=== PATIENT | male | born 1935 | race Caucasian/White ===

== ENCOUNTER → 2017-02-02 | Outpatient (CLI) | payer OTHER ==
[~2017-02-02] MED LIST: TAMS0.4C38 PO
[2017-02-02 13:55] LABS: BASO % 0.3 %; BASO ABS # 0.02 K/uL (0-0.2); COMPLETE YES; EOS % 5.6 %; IG% 0.2 %; LYMPH % 28.1 %; LYMPH ABS # 1.71 K/uL (1.2-3.4); MEAN CELL VOLUME 94.8 fL (80-100); MEAN CORPUSCULAR HEMOGLOBIN 30.1 pg (25-34); MEAN CORPUSCULAR HGB CONC 31.7 g/dl (32-36); MEAN PLATELET VOLUME 12.2 fL (7.4-10.4); MONO % 10.2 %; NEUT % 55.6 %; PLATELET COUNT 149 K/uL (130-400); RED BLOOD COUNT 4.85 M/uL (4.7-6.1); WHITE BLOOD COUNT 6.08 K/uL (4.8-10.8)
[2017-02-02 14:33] LABS: ALT/SGPT 34 U/L (12-78); AST/SGOT 32 U/L (15-37); BLOOD UREA NITROGEN 18 mg/dl (7-18); BUN/CREATININE RATIO 16.5 (10-20); CALCIUM 8.6 mg/dl (8.5-10.1); CARBON DIOXIDE 28 mmol/L (21-32); CHLORIDE 106 mmol/L (98-107); CHOLESTEROL 172 mg/dl (0-200); GLUCOSE 101 mg/dl (70-99); POTASSIUM 3.9 mmol/L (3.5-5.1); SODIUM 139 mmol/L (136-145)
[2017-02-02 14:38] LABS: ALKALINE PHOSPHATASE 59 U/L (45-117); CHOLESTEROL/HDL RATIO 2.6; HDL CHOLESTEROL 67 mg/dl; LDL CHOLESTEROL CALCULATED 64 mg/dl; TRIGLYCERIDES 205 mg/dl (0-150); VERY LOW DENSITY LIPOPROT CALC 41 mg/dl
== END | disposition home or self-care (01) ==
LOC: C.LABBC 10:35
PROVIDERS: ATTEND Internal Medicine Geriatric Medicine
DX: R97.20 Elevated prostate specific antigen [PSA] (principal); E78.5 Hyperlipidemia, unspecified; M19.90 Unspecified osteoarthritis, unspecified site; D69.6 Thrombocytopenia, unspecified

== ENCOUNTER → 2017-08-11 | Outpatient (CLI) | payer OTHER ==
[~2017-08-11] MED LIST changes: +ATOR-22 PO; +FURO-85 PO; +LVQ750 PO; +MCRK20 PO; +PRED10TA PO; +SACC250C3 PO; +TPRSR25 PO; +XRL20 PO
--- NOTE | 2017-08-11 16:06 | DIAGNOSTIC IMAGING REPORT ---
R HIP UNILATERAL 2 VIEWS HISTORY: 81 years-old Male M79.609 Limb painM54.16 Lumbar [id number] Neck painright acute right hip pain without known injury or trauma COMPARISON: Lumbar spine radiographs of same day TECHNIQUE: 2 views of the right hip FINDINGS: Moderate degenerative changes of the right femoral acetabular joint with subcortical cystic changes of the lateral right femoral head. There is no acute fracture or subluxation. Degenerative changes are also noted within the right SI joint and pubic symphysis. The right hemipelvis appears intact. IMPRESSION: Moderate right hip degenerative changes without acute fracture or subluxation. The above report was generated using voice recognition software. It may contain grammatical, syntax or spelling errors. Electronically signed by: Abdoul Bradford M.D. 08/11/2017 4:05 PM Dictated Date/Time: 08/11/2017 4:02 PM
--- NOTE | 2017-08-11 16:09 | DIAGNOSTIC IMAGING REPORT ---
CERVICAL SPINE 2 OR 3 VIEWS HISTORY: 81 years-old Male M79.609 Limb painM54.16 Lumbar [id number] Neck pain acute cervical spine pain COMPARISON: None available TECHNIQUE: 3 views of the cervical spine FINDINGS: Bones appear mildly demineralized. The seventh vertebral segment is not well seen on the lateral view secondary to patient's shoulder. Multilevel moderate to severe intervertebral disc space narrowing with endplate spurring and moderate facet arthrosis. There is straightening of the normal cervical lordosis. No acute fracture or subluxation identified. Soft tissues and imaged lung apices appear unremarkable. Probable atherosclerotic plaquing of the left carotid bulb. IMPRESSION: Degenerative changes as above without acute fracture or subluxation. The above report was generated using voice recognition software. It may contain grammatical, syntax or spelling errors. Electronically signed by: Abdoul Bradford M.D. 08/11/2017 4:08 PM Dictated Date/Time: 08/11/2017 4:06 PM
--- NOTE | 2017-08-11 16:20 | DIAGNOSTIC IMAGING REPORT ---
LUMBAR SPINE 5 VIEWS CLINICAL HISTORY: Lumbar radiculopathy. FINDINGS: 5 views of the lumbar spine are obtained. No prior studies are available for comparison at the time of dictation. The skeletal structures are osteopenic. There is no radiographic evidence of fracture or malalignment. Vertebral body height is maintained throughout the lumbar spine. There is minimal retrolisthesis at L2-L3 and L3-L4. Alignment is otherwise preserved. Anterior and lateral marginal osteophytes are seen throughout. There is mild lumbar levoscoliosis, centered at L3. Moderate facet arthropathy is seen in the mid to lower lumbar region. The transverse and spinous processes appear intact. There is no evidence of spondylolysis. Mild to moderate disc space narrowing is seen at L3-L4. Endplate sclerosis is noted at this level. Only mild disc space narrowing is seen at the remaining lumbar levels. The bony pelvis is intact as visualized. Mild sclerotic change is seen in the sacroiliac joints. No bowel obstruction is identified. IMPRESSION: 1. No acute bony abnormality is seen involving the lumbar spine. 2. Osteopenia with lumbosacral spondylosis and scoliosis as above. Dictated: 08/11/2017 4:02 PM Transcribed: 08/11/2017 4:19 PM [facility] Electronically signed by: Miguel Goldstein M.D. 08/11/2017 4:27 PM Dictated Date/Time: 08/11/2017 4:02 PM
== END | disposition home or self-care (01) ==
LOC: C.RADBC 15:26
PROVIDERS: ATTEND Internal Medicine Geriatric Medicine
DX: M79.609 Pain in unspecified limb (principal); M47.812 Spondylosis without myelopathy or radiculopathy, cervical region; M24.851 Other specific joint derangements of right hip, not elsewhere classified; M85.88 Other specified disorders of bone density and structure, other site; M47.27 Other spondylosis with radiculopathy, lumbosacral region; M41.9 Scoliosis, unspecified

== ENCOUNTER 2017-08-16 10:30 | Inpatient (IN) | payer OTHER ==
[~2017-08-16] VITALS: Ht 170.2 cm; Wt 104.0 kg
[~2017-08-16 10:30] MED LIST changes: -ATOR-22 PO; -FURO-85 PO; -LVQ750 PO; -MCRK20 PO; -PRED10TA PO; -SACC250C3 PO; -TPRSR25 PO; -XRL20 PO
[2017-08-16 11:15] LABS: BASO % 0.1 %; BASO ABS # 0.01 K/uL (0-0.2); EOS % 0.7 %; EOS ABS # 0.09 K/uL (0-0.5); HEMATOCRIT 41.8 % (42-52); HEMOGLOBIN 14.3 g/dL (14.0-18.0); IG# 0.03 K/uL (0.00-0.02); LYMPH % 19.4 %; LYMPH ABS # 2.45 K/uL (1.2-3.4); MEAN CELL VOLUME 92.7 fL (80-100); MEAN CORPUSCULAR HEMOGLOBIN 31.7 pg (25-34); MEAN CORPUSCULAR HGB CONC 34.2 g/dl (32-36); MEAN PLATELET VOLUME 10.3 fL (7.4-10.4); MONO % 10.2 %; MONO ABS # 1.29 K/uL (0.11-0.59); NEUT % 69.4 %; NEUT ABS # 8.76 K/uL (1.4-6.5); PLATELET COUNT 232 K/uL (130-400); RED CELL DISTRIBUTION WIDTH CV 12.7 % (11.5-14.5); RED CELL DISTRIBUTION WIDTH SD 42.7 fL (36.4-46.3); WHITE BLOOD COUNT 12.63 K/uL (4.8-10.8)
[2017-08-16 11:23] LABS: PTT PATIENT 24.8 SECONDS (21.0-31.0)
[2017-08-16] MEDS ORDERED: ATOR-22 PO (11:32)
[2017-08-16] MEDS ORDERED: PRED10TA PO (11:32)
[2017-08-16 11:34] LABS: ALBUMIN 3.2 gm/dl (3.4-5.0); ALT/SGPT 33 U/L (12-78); AST/SGOT 16 U/L (15-37); BLOOD UREA NITROGEN 21 mg/dl (7-18); CALCIUM 8.4 mg/dl (8.5-10.1); CARBON DIOXIDE 28 mmol/L (21-32); CREATININE 1.24 mg/dl (0.60-1.40); GLUCOSE 128 mg/dl (70-99); LIPASE 210 U/L (73-393); POTASSIUM 3.4 mmol/L (3.5-5.1); SODIUM 139 mmol/L (136-145)
--- NOTE | 2017-08-16 11:39 | DIAGNOSTIC IMAGING REPORT ---
CHEST ONE VIEW PORTABLE CLINICAL HISTORY: Evaluate Fever/Sepsis COMPARISON STUDY: No previous studies for comparison. FINDINGS: Moderate cardiomegaly. Diffuse parenchymal infiltrate left base. Moderate prominence of pulmonary vasculature. Diaphragms are smooth. IMPRESSION: Infiltrate left base. Cardiomegaly with prominent pulmonary vasculature. The above report was generated using voice recognition software. It may contain grammatical, syntax or spelling errors. Electronically signed by: Tony Caruso M.D. 08/16/2017 11:37 AM Dictated Date/Time: 08/16/2017 11:36 AM
[2017-08-16] MEDS ORDERED: CEFTRIAXONE SOD INJ 1 GM ADDVIAL IV STA (11:42)
[2017-08-16 11:45] LABS: ALKALINE PHOSPHATASE 61 U/L (45-117); CKMB 1.1 ng/ml (0.5-3.6); TOTAL PROTEIN 7.1 gm/dl (6.4-8.2)
[2017-08-16] MEDS ORDERED: AZITHROMYCIN IV 500 MG in DEXTROSE 5% 250ML 250 ML IV ONE (11:45)
[2017-08-16] MEDS ORDERED: HEPARIN SOD 5000 UNIT/0.5 ML CARP IV SCH (12:34)
[2017-08-16] MEDS ORDERED: MoRPHine SULFATE 4 MG/ML 1 ML CARP\\VIAL IV STA (12:35)
[2017-08-16] MEDS ORDERED: MoRPHine SULFATE 2 MG/ML CARP IV PRN (13:00)
[2017-08-16] MEDS ORDERED: HEPARIN 25,000 UNIT/500ML D5W 500 ML IV PRN (13:15)
[2017-08-16] MEDS ORDERED: NURSING VERBAL MED ORDER ONE ×2 (13:30→21:30)
[2017-08-16] MEDS: HEPARIN 25,000 UNIT/500ML D5W 500 ML IV PRN (13:47)
[2017-08-16] MEDS ORDERED: SODIUM CHLORIDE 0.9% 1000ML 1,000 ML IV SCH (13:54)
[2017-08-16] MEDS ORDERED: VANCOMYCIN 1GM/270ML NSS IV STA (13:54)
[2017-08-16] MEDS ORDERED: HYDROmorphone INJ 1 MG/ML SYR ONE (13:58)
[2017-08-16] MEDS ORDERED: NITROGLYCERIN 0.4 MG SL PER TAB CHARGE SL PRN (14:00)
[2017-08-16] MEDS ORDERED: POLYETHYLENE (MIRALAX) 17 GM PACK PO PRN (14:00)
[2017-08-16] MEDS ORDERED: ALUMINUM/MAGNESIUM/SIMETH (MAALOX MAX) 30 ML UDC PO PRN (14:00)
[2017-08-16] MEDS ORDERED: ONDANSETRON INJ 2 MG/ML 2 ML VIAL IV PRN (14:00)
[2017-08-16] MEDS ORDERED: HYDROmorphone INJ 1 MG/ML SYR IV PRN (14:00)
[2017-08-16] MEDS ORDERED: ZOLPIDEM TARTRATE 5 MG TAB PO PRN ×2 (14:00)
[2017-08-16] MEDS ORDERED: MAGNESIUM HYDROXIDE SUSP 30 ML UDC PO PRN (14:00)
[2017-08-16] MEDS ORDERED: ACETAMINOPHEN 325 MG TAB PO PRN (14:00)
--- NOTE | 2017-08-16 14:20 | History and Physical ---
History & Physical Date & Time of Service: Aug 16, 2017 at 14:09 Chief Complaint: Chest Discomfort Primary Care Physician: González Fountain M.D. History of Present Illness Source: patient, family 81 years old man with past medical history of dyslipidemia was in his regular state of health until 2 weeks ago. Patient developed upper respiratory tract infection with fever and shortness of breath about 6 ago and completely recovered from that sickness last week. Today he woke up with severe shortness of breath and bilateral chest pain. He describes the pain to be 10 out of 10 and gets worse with deep inspiration. He denies any cough or fever today. When he presented to the hospital he was found to have atrial fibrillation, new onset. Pain appears to be musculoskeletal/pleuritic in nature. He is unable to take deep breaths from the pain. He also said that he feels dehydrated with dry mucous membranes. His pain radiates to his shoulders and to his upper part of mid back. Denies any recent travel denies any pain in his lower extremities. No previous history of heart disease. Last week has some sciatic pain in his right lower extremity that was treated with prednisone oral. Past Medical/Surgical History Dyslipidemia Sciatic nerve Social History Smoking Status: Never Smoker Multi-Drug Resistant Organisms History of MDRO: No Allergies Coded Allergies: Penicillins (Verified Allergy, Mild, UNKNOWN, 08/16/17) Home Medications Scheduled Atorvastatin (Lipitor), 20 MG PO DAILY Prednisone Tab (Prednisone), 2 MG PO DAILY Review of Systems Constitutional: No fever, No chills, No sweats, No weight loss, No weakness, No fatigue, No problem reported Eyes: No worsening of vision, No eye pain, No redness, No discharge, No diplopia, No problem reported ENT: No hearing loss, No unusual epistaxis, No nasal symptoms, No sore throat, No tinnitus, No dental problems, No trouble swallowing, No problem reported Respiratory: + shortness of breath, + dyspnea on exertion, + dyspnea at rest, No cough, No sputum, No wheezing, No hemoptysis, No problem reported Cardiovascular: + chest pain, No orthopnea, No PND, No edema, No claudication, No palpitations, No problem reported Abdomen: No pain, No nausea, No vomiting, No diarrhea, No constipation, No GI bleeding, No problem reported Musculoskeletal: No joint pain, No muscle pain, No swelling, No calf pain, No problem reported Genitourinary - Male: No hematuria, No dysuria, No urinary frequency, No urinary urgency, No urinary hesitancy, No urinary retention, No urinary incontinence, No penile discharge, No lesions, No impotence, No problem reported Neurologic: No memory loss, No paralysis, No weakness, No numbness/tingling, No vertigo, No balance problems, No problem reported Psychiatric: No depression symptoms, No anhedonism, No anxiety, No insomnia, No substance abuse, No problem reported Endocrine: No fatigue, No excessive thirst, No excessive urination, No problem reported Hematologic / Lymphatic: No abnormal bleeding/bruising, No clotting problems, No swollen lymph nodes, No night sweats, No problem reported Integumentary: No rash, No itch, No new/changing skin lesions, No color change , No bleeding, No problem reported Allergic / Immunologic: No environmental allergies, No seasonal allergies, No pet sensitivities, No food allergies, No hives, No frequent infections, No poor healing, No prolonged convalescence, No problem reported Physical Exam Vital Signs Date Time Temp Pulse Resp B/P (MAP) Pulse Ox O2 Delivery O2 Flow Rate FiO2 08/16/17 13:48 82 20 106/78 96 08/16/17 12:23 74 18 110/54 92 Room Air 08/16/17 11:24 101/62 08/16/17 11:22 36.7 67 18 96/59 92 Room Air 08/16/17 10:53 93 Room Air 08/16/17 10:41 63 08/16/17 10:38 36.5 71 20 119/72 96 Room Air General Appearance: + mild distress, + obese Head: normocephalic, atraumatic Eyes: normal inspection, EOMI ENT: normal ENT inspection, hearing grossly normal Neck: supple Respiratory/Chest: + respiratory distress, + decreased breath sounds, + crackles, + rhonchi Cardiovascular: no gallop, + systolic murmur, + irregularly irregular Abdomen/GI: normal bowel sounds, non tender, soft, no organomegaly, no pulsatile mass Back: normal inspection Extremities/Musculoskelatal: normal inspection, no calf tenderness, normal capillary refill, no pedal edema Neurologic/Psych: fluorescent lamp replacer II-XII nml as tested, no motor/sensory deficits, alert, normal mood/affect, normal reflexes, oriented x 3 Skin: normal color, warm/dry, no rash Diagnostics Laboratory Results Results Past 24 Hours Test 08/16/17 11:00 08/16/17 11:50 08/16/17 13:54 Range/Units White Blood Count 12.63 4.8-10.8 K/uL Red Blood Count 4.51 4.7-6.1 M/uL Hemoglobin 14.3 14.0-18.0 g/dL Hematocrit 41.8 42-52 % Mean Corpuscular Volume 92.7 80-100 fL Mean Corpuscular Hemoglobin 31.7 25-34 pg Mean Corpuscular Hemoglobin Concent 34.2 32-36 g/dl Platelet Count 232 130-400 K/uL Mean Platelet Volume 10.3 7.4-10.4 fL Neutrophils (%) (Auto) 69.4 % Lymphocytes (%) (Auto) 19.4 % Monocytes (%) (Auto) 10.2 % Eosinophils (%) (Auto) 0.7 % Basophils (%) (Auto) 0.1 % Neutrophils # (Auto) 8.76 1.4-6.5 K/uL Lymphocytes # (Auto) 2.45 1.2-3.4 K/uL Monocytes # (Auto) 1.29 0.11-0.59 K/uL Eosinophils # (Auto) 0.09 0-0.5 K/uL Basophils # (Auto) 0.01 0-0.2 K/uL RDW Standard Deviation 42.7 36.4-46.3 fL RDW Coefficient of Variation 12.7 11.5-14.5 % Immature Granulocyte % (Auto) 0.2 % Immature Granulocyte # (Auto) 0.03 0.00-0.02 K/uL Prothrombin Time 10.6 9.0-12.0 SECONDS Prothromb Time International Ratio 1.0 0.9-1.1 Activated Partial Thromboplast Time 24.8 21.0-31.0 SECONDS Partial Thromboplastin Ratio 1.0 Sodium Level 139 136-145 mmol/L Potassium Level 3.4 3.5-5.1 mmol/L Chloride Level 102 98-107 mmol/L Carbon Dioxide Level 28 21-32 mmol/L Anion Gap 9.0 3-11 mmol/L Blood Urea Nitrogen 21 7-18 mg/dl Creatinine 1.24 0.60-1.40 mg/dl Est Creatinine Clear Calc Drug Dose 54.9 ml/min Estimated GFR () 63.2 Estimated GFR (Non- 54.6 BUN/Creatinine Ratio 17.1 10-20 Random Glucose 128 70-99 mg/dl Calcium Level 8.4 8.5-10.1 mg/dl Total Bilirubin 0.6 0.2-1 mg/dl Direct Bilirubin 0.2 0-0.2 mg/dl Aspartate Amino Transf (AST/SGOT) 16 15-37 U/L Alanine Aminotransferase (ALT/SGPT) 33 12-78 U/L Alkaline Phosphatase 61 45-117 U/L Total Creatine Kinase 53 39-308 U/L Creatine Kinase MB 1.1 0.5-3.6 ng/ml Creatine Kinase MB Ratio 2.1 0-3.0 Troponin I < 0.015 0-0.045 ng/ml Total Protein 7.1 6.4-8.2 gm/dl Albumin 3.2 3.4-5.0 gm/dl Lipase 210 73-393 U/L Thyroid Stimulating Hormone (TSH) 2.080 0.300-4.500 uIu/ml Urine Color DK YELLOW Urine Appearance CLEAR CLEAR Urine pH 5.5 4.5-7.5 Urine Specific [place] 1.028 1.000-1.030 Urine Protein TRACE NEG Urine Glucose (UA) NEG NEG Urine Ketones TRACE NEG Urine Occult Blood NEG NEG Urine Nitrite NEG NEG Urine Bilirubin NEG NEG Urine Urobilinogen NEG NEG Urine Leukocyte Esterase NEG NEG Urine WBC (Auto) 1-5 0-5 /hpf Urine RBC (Auto) 0-4 0-4 /hpf Urine Hyaline Casts (Auto) 1-5 0-5 /lpf Urine Epithelial Cells (Auto) 5-10 0-5 /lpf Urine Bacteria (Auto) NEG NEG Microbiology Results 08/16/17 Blood Culture, Received Pending 08/16/17 Blood Culture, Received Pending Impression Assessment and Plan 81 years old man with past medical history of dyslipidemia, recent upper respiratory tract infection presented to the ED with severe bilateral pleuritic chest pain referred to the back with left lower lung density and new onset atrial fibrillation. Assessment Acute hypoxic respiratory failure secondary to below Onset atrial fibrillation Left lower lobe density, possible pneumonia History of recent upper respiratory tract infection possible flu Pleuritic chest pain number cannot rule out PE with pulmonary infarct rather than pneumonia Obesity Dyslipidemia plan: There is a possibility that lung density shown on left lower lobe could be pulmonary infarct secondary to pulmonary embolism as his chest pain is extremely atypical, also with his pleuritic chest pain referred to his shoulders would like to rule out aortic dissection, even though it's unlikely that likes to keep high index of suspicion. We'll order a d-dimer to rule out both, if d-dimer is positive which could be from any other reason then will do a CT angiogram to confirm or rule out any of the above diagnosis, although the treatment of pulmonary embolism could be similar to treatment of atrial fibrillation which is initiation of anticoagulation, aortic dissection should be completely ruled out prior to initiating any anticoagulation admit to telemetry obtain serial cardiac enz NTG SL/topical prn CP consult portfolio consultant pain management Check hemoglobin A1c/lipids to stratify patient risk factors repeat EKG prn chest pain Blood culture/sputum culture Influenza virus screen Urine legionella antigen Initiate broad-spectrum antibiotics covering typical and atypical microorganisms , giving the previous upper respiratory tract infection will cover MRSA with vancomycin and will add levofloxacin Start patient on lactobacillus to prevent C. difficile Continue home medications IV fluid hydration as needed Monitor labs in a.m. Monitor oxygen saturation DVT prophylaxis/heparin subcutaneous Resuscitation Status FULL RESUSCITATION VTE Prophylaxis VTE Risk Assessment Done? Y/N: Yes Risk Level: Moderate
[2017-08-16] MEDS ORDERED: VANCOMYCIN CONSULT ACTIVE PRN (14:30)
--- NOTE | 2017-08-16 14:56 | EMERGENCY ROOM VISIT NOTE ---
History Report prepared by Johnny: Wade Chamberlain Under the Supervision of: Dr. Ajith Ivy D.O. First contact with patient: 10:37 Chief Complaint: CHEST PAIN Stated Complaint: CHEST DISCOMFORT History of Present Illness The patient is an 81 year old male who presents to the Emergency Room with complaints of constant chest pain that he woke up with this morning. The patient describes his chest pain as a "pressure" pushing up from his diaphragm into his chest. He rates this pressure as a 7/10 in severity, and notes that the pain has presented with associated shortness of breath. The chest pain is radiating into his shoulders bilaterally. He notes that he has been feeling generally unwell for the past couple of days. He was diagnosed with dehydration by his primary care physician last week. He denies any history of atrial fibrillation. Source of History: patient Onset: This morning Position: chest Quality: pressure Timing: constant Associated Symptoms: + SOB Review of Systems As above otherwise negative for 10 systems Past Medical & Surgical Medical Problems: (1) New onset a-fib Denies cardiac history, denies hx of hypertension, denies history of atrial fibrillation. Family History Family history omitted secondary to age. Social History Smoking Status: Never Smoker Drug Use: none Occupation Status: retired Current/Historical Medications Scheduled Atorvastatin (Lipitor), 20 MG PO DAILY Prednisone Tab (Prednisone), 2 MG PO DAILY Allergies Coded Allergies: Penicillins (Verified Allergy, Mild, UNKNOWN, 08/16/17) Physical Exam Vital Signs Date Time Temp Pulse Resp B/P (MAP) Pulse Ox O2 Delivery O2 Flow Rate FiO2 08/16/17 13:48 82 20 106/78 96 08/16/17 12:23 74 18 110/54 92 Room Air 08/16/17 11:24 101/62 08/16/17 11:22 36.7 67 18 96/59 92 Room Air 08/16/17 10:53 93 Room Air 08/16/17 10:41 63 08/16/17 10:38 36.5 71 20 119/72 96 Room Air Physical Exam CONSTITUTIONAL/VITAL SIGNS: Reviewed / noted above. GENERAL: Non-toxic in appearance. INTEGUMENTARY: Warm, dry, and [place]. HEAD: Normocephalic. EYES: without scleral icterus or trauma. ENT/OROPHARYNX: clear and moist. LYMPHADENOPATHY/NECK: Is supple without lymphadenopathy or meningismus. RESPIRATORY: Lungs clear and equal. CARDIOVASCULAR: Irregular rhythm, with a regular rate. GI/ABDOMEN: Soft and nontender. No organomegaly or pulsatile mass. No rebound or guarding. Normal bowel sounds. EXTREMITIES: Warm and well perfused. BACK: No CVA tenderness. NEUROLOGICAL: Intact without focal deficits. PSYCHIATRIC: normal affect. MUSCULOSKELETAL: Normally developed with good muscle tone. Medical Decision & Procedures ER Provider Diagnostic Interpretation: Radiology results as stated below per my review and radiologist interpretation: CHEST ONE VIEW PORTABLE CLINICAL HISTORY: Evaluate Fever/Sepsis COMPARISON STUDY: No previous studies for comparison. FINDINGS: Moderate cardiomegaly. Diffuse parenchymal infiltrate left base. Moderate prominence of pulmonary vasculature. Diaphragms are smooth. IMPRESSION: Infiltrate left base. Cardiomegaly with prominent pulmonary vasculature. The above report was generated using voice recognition software. It may contain grammatical, syntax or spelling errors. Electronically signed by: Tony Caruso M.D. 08/16/2017 11:37 AM Dictated Date/Time: 08/16/2017 11:36 AM Laboratory Results 08/16/17 11:00 Red Blood Count 4.51, Mean Corpuscular Volume 92.7, Mean Corpuscular Hemoglobin 31.7, Mean Corpuscular Hemoglobin Concent 34.2, Mean Platelet Volume 10.3, Neutrophils (%) (Auto) 69.4, Lymphocytes (%) (Auto) 19.4, Monocytes (%) (Auto) 10.2, Eosinophils (%) (Auto) 0.7, Basophils (%) (Auto) 0.1, Neutrophils # (Auto ) 8.76, Lymphocytes # (Auto) 2.45, Monocytes # (Auto) 1.29, Eosinophils # (Auto ) 0.09, Basophils # (Auto) 0.01 08/16/17 11:00 Test 08/16/17 11:00 08/16/17 11:50 08/16/17 13:54 White Blood Count 12.63 K/uL (4.8-10.8) Red Blood Count 4.51 M/uL (4.7-6.1) Hemoglobin 14.3 g/dL (14.0-18.0) Hematocrit 41.8 % (42-52) Mean Corpuscular Volume 92.7 fL (80-100) Mean Corpuscular Hemoglobin 31.7 pg (25-34) Mean Corpuscular Hemoglobin Concent 34.2 g/dl (32-36) Platelet Count 232 K/uL (130-400) Mean Platelet Volume 10.3 fL (7.4-10.4) Neutrophils (%) (Auto) 69.4 % Lymphocytes (%) (Auto) 19.4 % Monocytes (%) (Auto) 10.2 % Eosinophils (%) (Auto) 0.7 % Basophils (%) (Auto) 0.1 % Neutrophils # (Auto) 8.76 K/uL (1.4-6.5) Lymphocytes # (Auto) 2.45 K/uL (1.2-3.4) Monocytes # (Auto) 1.29 K/uL (0.11-0.59) Eosinophils # (Auto) 0.09 K/uL (0-0.5) Basophils # (Auto) 0.01 K/uL (0-0.2) RDW Standard Deviation 42.7 fL (36.4-46.3) RDW Coefficient of Variation 12.7 % (11.5-14.5) Immature Granulocyte % (Auto) 0.2 % Immature Granulocyte # (Auto) 0.03 K/uL (0.00-0.02) Prothrombin Time 10.6 SECONDS (9.0-12.0) Prothromb Time International Ratio 1.0 (0.9-1.1) Activated Partial Thromboplast Time 24.8 SECONDS (21.0-31.0) Partial Thromboplastin Ratio 1.0 D-Dimer 640 ug/L FEU (0-500) Anion Gap 9.0 mmol/L (3-11) Est Creatinine Clear Calc Drug Dose 54.9 ml/min Estimated GFR () 63.2 Estimated GFR (Non- 54.6 BUN/Creatinine Ratio 17.1 (10-20) Calcium Level 8.4 mg/dl (8.5-10.1) Total Bilirubin 0.6 mg/dl (0.2-1) Direct Bilirubin 0.2 mg/dl (0-0.2) Aspartate Amino Transf (AST/SGOT) 16 U/L (15-37) Alanine Aminotransferase (ALT/SGPT) 33 U/L (12-78) Alkaline Phosphatase 61 U/L (45-117) Creatine Kinase MB 1.1 ng/ml (0.5-3.6) Creatine Kinase MB Ratio 2.1 (0-3.0) Troponin I < 0.015 ng/ml (0-0.045) Total Protein 7.1 gm/dl (6.4-8.2) Albumin 3.2 gm/dl (3.4-5.0) Lipase 210 U/L (73-393) Thyroid Stimulating Hormone (TSH) 2.080 uIu/ml (0.300-4.500) Urine Color DK YELLOW Urine Appearance CLEAR (CLEAR) Urine pH 5.5 (4.5-7.5) Urine Specific [place] 1.028 (1.000-1.030) Urine Protein TRACE (NEG) Urine Glucose (UA) NEG (NEG) Urine Ketones TRACE (NEG) Urine Occult Blood NEG (NEG) Urine Nitrite NEG (NEG) Urine Bilirubin NEG (NEG) Urine Urobilinogen NEG (NEG) Urine Leukocyte Esterase NEG (NEG) Urine WBC (Auto) 1-5 /hpf (0-5) Urine RBC (Auto) 0-4 /hpf (0-4) Urine Hyaline Casts (Auto) 1-5 /lpf (0-5) Urine Epithelial Cells (Auto) 5-10 /lpf (0-5) Urine Bacteria (Auto) NEG (NEG) Laboratory results as stated above per my review. Medications Administered Medications (Trade) Dose Ordered Sig/Mony Route Start Time Stop Time Status Last Admin Dose Admin Ceftriaxone Sodium (Rocephin Inj) 1 gm NOW STAT IV 08/16/17 11:42 08/16/17 11:44 DC 08/16/17 11:48 1 GM Azithromycin 500 mg/Dextrose 255 ml @ 125 mls/hr ONE ONCE IV 08/16/17 11:45 08/16/17 13:47 DC 08/16/17 12:24 125 MLS/HR Heparin Sodium/ Dextrose 1 ea NOW STAT N/A 08/16/17 12:34 08/16/17 12:35 DC 08/16/17 12:34 1 EA Morphine Sulfate (MoRPHine SULFATE INJ) 4 mg NOW STAT IV 08/16/17 12:35 08/16/17 12:36 DC 08/16/17 12:51 4 MG Heparin Sodium (Porcine) (Heparin Sq 5000 Unit/0.5ml) 5,000 unit 1234 IV 2/13/18 12:34 08/16/17 14:40 DC 08/16/17 13:46 5,000 UNIT Heparin Sodium/ Dextrose 500 ml @ 29 mls/hr [id number] PRN IV 08/16/17 12:34 09/15/17 12:33 08/16/17 13:47 29 MLS/HR Hydromorphone HCl (Dilaudid Inj) 1 mg STK-MED ONCE .ROUTE 08/16/17 13:58 08/16/17 14:02 DC 08/16/17 13:58 1 MG ECG Indication: chest pain Rate (beats per minute): 63 Rhythm: atrial fibrillation Findings: other (No ST elevations or depressions) Comparison ECG Date: 03/09/12 Change: Atrial fibrillation has replaced normal sinus rhythm. Patient's electrocardiogram interpreted by me. ED Course 1039: Previous medical records were reviewed. The patient was evaluated in room A4B. A complete history and physical examination was performed. 1142: Ordered Rocephin 1 gm IV. 1145: Ordered Azithromycin 225 mL @ 125 mL/hr IV. 1234: Ordered Heparin Sodium /Dextrose 1 N/A. 1235: Ordered Morphine Sulfate 4 mg IV. 1236: I checked on the patient at this time and reviewed findings of the case. He is still agreeable to admission. 1249: I discussed the case with Dr. Brooks BABIN Hospitalist. He will evaluate the patient for further treatment. Medical Decision the differential was considered includes acute myocardial infarction, acute coronary syndrome, myocarditis, pericarditis, pericardial effusions /tamponade, esophageal perforation, thoracic aortic dissection, pulmonary embolism, pneumonia, pneumothorax, pancreatitis, shingles, acute cholecystitis, perforated abdominal viscus. This is an 81-year-old male who presents to the ED with a chief complaint of chest discomfort that started this morning when he awoke. He states that it feels like a pressure type sensation. He also had some slight flulike symptoms last week with a cough and congestion. The patient has associated shortness of breath. He states that his symptoms seemed to increase with walking. He has a history of high cholesterol. Denies any other symptoms. His vital signs are normal. His physical exam was relatively unremarkable. He does have an irregular pulse. An EKG shows A. fib at a rate of 63 without acute injury. This is new for the patient. He has not had this in the past. Chest x-ray reveals a left before meals infiltrate. Troponin was negative, complete metabolic panel was normal, urine did not show infection and TSH was normal. The patient was started on IV heparin. He was started on IV antibiotics. He' ll be seen by the hospitalist for further inpatient evaluation and care. Medication Reconcilliation Current Medication List: was personally reviewed by me Blood Pressure Screening Patient's blood pressure: Normal blood pressure Consults Time Called: 1237 Consulting Physician: Dr. Brooks BABIN Hospitalist Returned Call: [phone] I discussed the case with Dr. Brooks BABIN Hospitalist. He will evaluate the patient for further treatment. Impression Primary Impression: New onset a-fib Additional Impression: Left lower lobe pneumonia Scribe Attestation The scribe's documentation has been prepared under my direction and personally reviewed by me in its entirety. I confirm that the note above accurately reflects all work, treatment, procedures, and medical decision making performed by me. Departure Information Referrals González Fountain M.D. (PCP) Patient Instructions My [facility] Problem Qualifiers
[2017-08-16] MEDS ORDERED: PERFLUTREN LIPID MICROSPHERE (DEFINITY) IV ONE (15:10)
[2017-08-16] MEDS ORDERED: VANCOMYCIN INJ 2,500 MG in SODIUM CHLORIDE 0.9% 500ML 500 ML IV SCH (15:30)
[2017-08-16] MEDS ORDERED: OPTIRAY 320 IV PRN (16:15)
--- NOTE | 2017-08-16 16:25 | DIAGNOSTIC IMAGING REPORT ---
CHEST COMBO ANGIO DISSECTION CLINICAL HISTORY: 81 years-old Male presenting with ^R/O PE/Dissection, chest discomfort. TECHNIQUE: Multidetector CT angiography of the chest was performed before and after the administration of intravenous contrast. 3-D volumetric and/or maximum intensity projection (MIP) images were subsequently reconstructed for review. IV contrast: 118 mL of Optiray 320. A dose lowering technique was used consistent with the principles of ALARA (as low as reasonably achievable). COMPARISON: None. CT DOSE (mGy.cm): The estimated cumulative dose is 1370.10 mGy.cm. FINDINGS: Specimen Transporter topogram: Unremarkable. Vasculature: The study is adequate for assessment of the aorta. Precontrast imaging demonstrates no evidence of intramural hematoma. Postcontrast imaging demonstrates no evidence of dissection, penetrating ulcer, or aneurysm. Allowing for timing of the contrast bolus, no gross evidence of a filling defect within the pulmonary arteries to suggest embolus. Main pulmonary artery enlarged measuring 3.8 cm in transverse dimension. No flattening of the interventricular septum. No intracardiac filling defect. Reflux of contrast into the intrahepatic IVC. Remaining chest: On soft tissue windows, bilateral gynecomastia more severe on the left. Normal thyroid. No axillary, supraclavicular, hilar, or mediastinal lymphadenopathy. Multichamber enlargement of the heart. Prominent pericardial recess along the posterior aspect of the right brachiocephalic vein and brachiocephalic confluence (series 7 image 91). Calcified pleural plaques noted bilaterally. No pericardial or pleural effusion. Upper abdomen normal. On lung windows, extensive dependent consolidation at the lung bases. Possible nodular opacity in the lingula (series 7 image 131). Scattered reticular and bandlike opacities. Evaluation of the lungs is highly degraded due to motion artifact. Minimal paraseptal emphysema at the lung apices. On bone windows, degenerative changes of the spine. IMPRESSION: 1. No evidence of acute aortic injury. 2. Enlarged main pulmonary artery suggest pulmonary hypertension. No central pulmonary embolus. 3. Calcified pleural plaques evidence of prior asbestos exposure. 4. Apparent nodular opacity in the lingula. Evaluation of the lungs is highly degraded due to motion artifact. Follow-up on a nonurgent outpatient basis recommended as this appears to represent a solid pulmonary nodule. 5. Extensive dependent atelectasis suspected. Electronically signed by: Garret Friend M.D. 08/16/2017 4:24 PM Dictated Date/Time: 08/16/2017 4:16 PM
[2017-08-16 16:30] VITALS: BP 109/68; PULSE 84; TEMP 36.5; Ht 170.2 cm; Wt 104.0 kg
--- NOTE | 2017-08-16 16:50 | ECHOCARDIOGRAM REPORT ---
*NOTICE TO RECEIVING DEMOCRAT AGENCY This information is strictly Confidential and protected under [place] law. [place] law prohibits you from making any further disclosure of this information unless further disclosure is expressly permitted by the written consent of the person to whom it pertains or is authorized by law. A general authorization for the release of medical or other information is not sufficient for this purpose. Hospital accepts no responsibility if the information is made available to any other person, INCLUDING THE PATIENT. Interpretation Summary * Name: LANCE BRANDT Study Date: 08/16/2017 02:46 PM BP: 106/78 mmHg * Patient Location: [facility] HR: 75 * : 1935 (M/d/yyyy) Gender: Male Height: 67 in * Age: 81 yrs Ethnicity: [place] Weight: 231 lb * Ordering Physician: Nancy Boyd * Referring Physician: Self, Referred * Performed By: Francia Stoll RCS * * Reason For Study: A-FIB / CHEST PAIN * BSA: 2.1 m2 This echo report entered in Error.
[2017-08-16] MEDS ORDERED: ACETYLCYSTEINE 600 MG CAP PO STA (17:32)
--- NOTE | 2017-08-16 17:46 | ECHOCARDIOGRAM REPORT ---
*NOTICE TO RECEIVING GREEN PARTY AGENCY This information is strictly Confidential and protected under [place] law. [place] law prohibits you from making any further disclosure of this information unless further disclosure is expressly permitted by the written consent of the person to whom it pertains or is authorized by law. A general authorization for the release of medical or other information is not sufficient for this purpose. Hospital accepts no responsibility if the information is made available to any other person, INCLUDING THE PATIENT. Interpretation Summary * Name: LANCE BRANDT Study Date: 08/16/2017 02:46 PM BP: 106/78 mmHg * Patient Location: [facility] HR: 75 * : 1935 (M/d/yyyy) Gender: Male Height: 67 in * Age: 81 yrs Ethnicity: [place] Weight: 231 lb * Ordering Physician: Nancy Boyd * Referring Physician: Self, Referred * Performed By: Francia Stoll RCS * * Reason For Study: A-FIB / CHEST PAIN * BSA: 2.1 m2 * -- Conclusions -- * 1. Normal LV size, borderline concentric LVH. * 2. Mild LV dysfunction. LVEF 45-50%. * 3. Normal RV size and function. * 4. Mild mitral regurgitation. Mild pulmonic insufficiency. Mild tricuspid regurgitation. * 5. Aortic valve sclerosis without stenosis. * 6. Severe left atrial enlargement. * 7. No prior studies for comparison. Procedure Details * A complete two-dimensional transthoracic echocardiogram was performed (2D, M-mode, Doppler and color flow Doppler). * The study was technically difficult. * A contrast injection of Definity was performed to improve assessment of LV function. * Contrast was injected into an intravenous site in the right arm. * One vial of Definity ultrasound contrast was diluted in normal saline to a total volume of 10 ml. A total of '2' ml of solution was administered during imaging. * Lot # [id number] of Definity utilized for procedure. * Expiration date 1 AUG 22. * The attending nurse who injected the contrast agent was CATARINA DOBBINS RN. Left Ventricle * The left ventricle is grossly normal size. * There is borderline concentric left ventricular hypertrophy. * Ejection Fraction = 45-50%. Right Ventricle * The right ventricle is not well visualized. * The right ventricular systolic function is normal as assessed by tricuspid annular plane systolic excursion (TAPSE) (normal >1.5 cm). Atria * The left atrium is severely dilated. * The right atrium is mildly dilated. * No ASD detected; PFO is not assessed. Mitral Valve * The mitral valve is grossly normal. * There is no mitral valve stenosis. * There is mild mitral regurgitation. Tricuspid Valve * There is mild tricuspid regurgitation. Aortic Valve * Aortic valve sclerosis moderate, without significant aortic valvular stenosis. * No hemodynamically significant valvular aortic stenosis. * There is no significant aortic regurgitation. Pulmonic Valve * The pulmonary valve is inadequately visualized, but the Doppler data is adequate for interpretation. * There is no pulmonic valvular stenosis. * Mild pulmonic valvular regurgitation. Great Vessels * The aortic root and proximal ascending aorta are normal sized. Pericardium/Pleural * There is no pericardial effusion. MMode 2D Measurements and Calculations IVSd 1.4 cm IVSs 1.6 cm LVIDd 3.0 cm LVIDs 1.8 cm LVPWd 1.1 cm LVPWs 1.6 cm IVS/LVPW 1.3 FS 39.5 % EDV(Teich) 35.4 ml ESV(Teich) 10.1 ml EF(Teich) 71.6 % EDV(cubed) 27.3 ml ESV(cubed) 6.1 ml EF(cubed) 77.8 % % IVS thick 18.0 % % LVPW thick 45.2 % LV mass(C)d 118.2 grams LV mass(C)dI 55.0 grams/m\S\2 LV mass(C)s 105.5 grams LV mass(C)sI 49.1 grams/m\S\2 SV(Teich) 25.3 ml SI(Teich) 11.8 ml/m\S\2 SV(cubed) 21.3 ml SI(cubed) 9.9 ml/m\S\2 Ao root diam 3.1 cm Ao root area 7.6 cm\S\2 LA dimension 5.8 cm LA/Ao 1.8 LVOT diam 2.0 cm LVOT area 3.3 cm\S\2 LVAd ap4 45.8 cm\S\2 LVLd ap4 9.2 cm EDV(MOD-sp4) 188.9 ml EDV(sp4-el) 194.3 ml LVAs ap4 26.9 cm\S\2 LVLs ap4 7.8 cm ESV(MOD-sp4) 81.9 ml ESV(sp4-el) 78.7 ml EF(MOD-sp4) 56.7 % EF(sp4-el) 59.5 % LVAd ap2 37.3 cm\S\2 LVLd ap2 7.9 cm EDV(MOD-sp2) 147.5 ml EDV(sp2-el) 150.2 ml LVAs ap2 23.7 cm\S\2 LVLs ap2 6.9 cm ESV(MOD-sp2) 72.1 ml ESV(sp2-el) 69.1 ml EF(MOD-sp2) 51.1 % EF(sp2-el) 54.0 % LVLd %diff -16.72 % EDV(MOD-bp) 182.0 ml LVLs %diff -13.11 % ESV(MOD-bp) 81.6 ml EF(MOD-bp) 55.2 % SV(MOD-sp4) 107.0 ml SI(MOD-sp4) 49.8 ml/m\S\2 SV(MOD-sp2) 75.4 ml SI(MOD-sp2) 35.1 ml/m\S\2 SV(MOD-bp) 100.4 ml SI(MOD-bp) 46.7 ml/m\S\2 SV(sp4-el) 115.6 ml SI(sp4-el) 53.8 ml/m\S\2 SV(sp2-el) 81.1 ml SI(sp2-el) 37.7 ml/m\S\2 Doppler Measurements and Calculations MV E max mar 98.8 cm/sec MV P1/2t max mar 120.8 cm/sec MV P1/2t 81.4 msec MVA(P1/2t) 2.7 cm\S\2 MV dec slope 434.8 cm/sec\S\2 MV dec time 0.21 sec Ao V2 max 180.6 cm/sec Ao max PG 13.1 mmHg Ao max PG (full) 10.8 mmHg JOSEPHINE(V,A) 1.4 cm\S\2 JOSEPHINE(V,D) 1.4 cm\S\2 LV V1 max PG 2.3 mmHg LV V1 max 75.7 cm/sec PA V2 max 72.5 cm/sec PA max PG 2.1 mmHg PI max mar 182.9 cm/sec PI max PG 13.4 mmHg PI dec slope 147.4 cm/sec\S\2 PI P1/2t 363.5 msec TR max mar 267.2 cm/sec
--- NOTE | 2017-08-16 18:25 | CARDIOLOGY CONSULTATION ---
DATE OF CONSULTATION: 08/16/2017 CONSULTATION REQUESTED BY: Dr. Bryant Guy. REASON FOR CONSULTATION: New onset atrial fibrillation. HISTORY OF PRESENT ILLNESS: Mr. Randhawa is a very pleasant 81-year-old man who was admitted in the setting of pleuritic chest pain, fatigue, was found to have pneumonia and diagnosed with new onset atrial fibrillation. Cardiology consulted for further management and recommendations regarding atrial fibrillation. The patient with no prior significant cardiac history. He most recently had an echocardiogram in June of 2017, which showed preserved LV function, grade 1 diastolic dysfunction and mild aortic stenosis. More recently, he has been in his usual state of health until about last week when developed URI symptoms with fevers, chills and what he suspects was associated dehydration. He also endorsed accompanying diffuse muscle aches and back pain radiating to his right leg. He was recently seen by his primary care physician, Dr. González Fountain who prescribed him a short course of p.o. prednisone. Over the weekend, the patient states that he was feeling improved; however, this morning around 6:30 a.m. woke up with paretic left-sided chest pain. This pain was constant, not made better by anything and was associated with mild shortness of breath. Today, the patient denies any associated fevers, chills or productive cough. Denies any palpitations or presyncope. Denies any heart failure symptoms. Presented to the Emergency Department this morning. Upon arrival, the patient was afebrile, normotensive, satting 96% on room air. Presenting EKG showed new atrial fibrillation with a ventricular rate of 63. There were no dynamic ST changes. He later underwent chest imaging with a CTA of the chest to rule out dissection. There is no evidence of central PE, no dissection and he did have a dilated mini pulmonary potentially suggestive of pulmonary hypertension, calcified pleural plaques and questionable suspected atelectasis versus pneumonia. The patient was started on broad spectrum antibiotics and started on anticoagulation with heparin and was admitted to telemetry. PAST MEDICAL HISTORY: 1. Dyslipidemia. 2. Osteoarthritis status post multiple joint injections with Dr. Angela. 3. BPH. 4. Mild ITP. FAMILY HISTORY: Denies any family history of premature coronary disease, sudden cardiac or significant arrhythmias. SOCIAL HISTORY: Lives by himself, has a girlfriend who lives with him on occasion; has 2 grown sons in the area. 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 REVIEW OF SYSTEMS: A 10-point review of systems is completed and otherwise negative unless noted in the HPI. PHYSICAL EXAMINATION: VITAL SIGNS: Temperature 36.7, pulse 67, blood pressure 96/59. He is satting 92% on room air. GENERAL: The patient appears uncomfortable but in no acute distress. HEENT: Sclerae are anicteric. Oropharynx is clear. Mucous membranes are moist. NECK: Supple with no lymphadenopathy. LUNGS: He had a few crackles at the right base. Decreased breath sounds at the left base, otherwise clear throughout. HEART: Irregularly irregular with a 2/6 systolic ejection murmur heard best at the right upper sternal border. ABDOMEN: Soft, nontender, obese. EXTREMITIES: Warm. He had no significant lower extremity edema. He had intact 2+ pulses distally. SKIN: Shows no rashes or lesions. NEUROLOGIC: Nonfocal. PSYCHIATRIC: Alert and appropriate. LABORATORY DATA: White blood cell count 12.6, hemoglobin of 14.3, platelets of 232. Sodium 139, potassium 3.4, BUN 21, creatinine 1.2. LFTs were within normal limits. TSH is within normal limits. UA remarkable for specific gravity of 1.02; otherwise, negative for UTI. IMAGING DATA: Chest x-ray showed infiltrate in the left base with cardiomegaly and prominent pulmonary vasculature. CTA as discussed above. Echocardiogram reviewed today showed low normal LV function with an EF 45-50%. There was subtle inferolateral hypokinesis. The patient had mild pulmonary regurgitation, aortic valve sclerosis without stenosis and a severely dilated left atrium, RV function was normal. IMPRESSION AND PLAN: 1. New onset atrial fibrillation. 2. Suspected community-acquired pneumonia. 3. Questionable recent viral illness. 4. Borderline wall motion abnormality on echocardiogram. 5. Mild mitral regurgitation. 6. Dyslipidemia. 7. Hypokalemia. Mr. Randhawa is here in the setting of new left-sided pleuritic chest pain with initial chest imaging potentially consistent with community-acquired pneumonia. He was noted to have a new onset atrial fibrillation which is well rate controlled. With this patient is asymptomatic. Echocardiogram does not show any significant valvular heart disease, but is remarkable for a severely dilated left atrium. He has multiple potential triggers for his newly diagnosed atrial fibrillation including questionable pneumonia, recent viral illness and recent steroid course. Long-term is at elevated risk for thromboembolism and would favor anticoagulation. Going forward recommend: -- continue to monitor on telemetry. No need for rate control agents at this time. -- trend troponins with left sided chest pain and questionable wall motion abnormality on echo -- supplement electrolytes as needed. -- agree with heparin infusion for anticoagulation with plan for long-term novel oral anticoagulant. No other additional cardiac testing at this time. Further recommendations pending clinical course. Thank you for consultation. INDIRA
[2017-08-16] MEDS: LACTOBACILLUS ACIDOPHILUS 1 GM PACK PO SCH (18:31)
[2017-08-16] MEDS ORDERED: LEVOFLOXACIN / D5W 500 MG in PREMIXED IN D5W 100 ML IV SCH (20:00)
[2017-08-16 20:16] VITALS: BP 108/63; PULSE 83; TEMP 36.7; O2SAT 91
[2017-08-16 23:25] VITALS: BP 101/69; PULSE 98; TEMP 36.9; O2SAT 91
[2017-08-16 23:40] LABS: PTT PATIENT 55.1 SECONDS (21.0-31.0)
[2017-08-17] VITALS (8 sets, daily range): BP systolic 109–134; BP diastolic 58–77; PULSE 76–101; TEMP 36.5–37.9; O2SAT 90–95
[2017-08-17 06:00] LABS: BASO % 0.1 %; BASO ABS # 0.02 K/uL (0-0.2); EOS % 0.6 %; HEMATOCRIT 37.5 % (42-52); HEMOGLOBIN 12.9 g/dL (14.0-18.0); IG# 0.05 K/uL (0.00-0.02); LYMPH % 16.5 %; LYMPH ABS # 2.63 K/uL (1.2-3.4); MEAN CORPUSCULAR HEMOGLOBIN 31.3 pg (25-34); MEAN CORPUSCULAR HGB CONC 34.4 g/dl (32-36); MEAN PLATELET VOLUME 10.4 fL (7.4-10.4); MONO ABS # 1.91 K/uL (0.11-0.59); NEUT % 70.5 %; NEUT ABS # 11.23 K/uL (1.4-6.5); PLATELET COUNT 222 K/uL (130-400); RED CELL DISTRIBUTION WIDTH SD 43.4 fL (36.4-46.3); WHITE BLOOD COUNT 15.94 K/uL (4.8-10.8)
[2017-08-17] MEDS: HEPARIN 25,000 UNIT/500ML D5W 500 ML IV PRN (06:06)
[2017-08-17] MEDS: ACETYLCYSTEINE 600 MG CAP PO SCH ×2 (06:07→18:53)
[2017-08-17 06:33] LABS: ALBUMIN 2.9 gm/dl (3.4-5.0); CREATININE 1.16 mg/dl (0.60-1.40); POTASSIUM 3.7 mmol/L (3.5-5.1)
[2017-08-17 06:36] LABS: TOTAL PROTEIN 6.6 gm/dl (6.4-8.2)
[2017-08-17 06:45] LABS: HEMOGLOBIN A1C 5.6 % (4.5-5.6)
[2017-08-17] MEDS: LACTOBACILLUS ACIDOPHILUS 1 GM PACK PO SCH ×3 (07:33→16:45)
[2017-08-17] MEDS: ATORVASTATIN 20 MG TAB PO SCH (07:34)
[2017-08-17] MEDS ORDERED: VANCOMYCIN INJ 1,500 MG in SODIUM CHLORIDE 0.9% 500ML 500 ML IV SCH (08:00)
--- NOTE | 2017-08-17 09:59 | Cardiology Follow-Up ---
Subjective Subjective Date of Service: Aug 17, 2017. Pt evaluation today including: conversation w/ patient, physical exam, chart review, lab review, review of studies, review of inpatient medication list Additional Details: Feeling better this morning. Still with left-sided chest pain, pleuritic in nature. Denies significant shortness of breath. Denies significant palpitations or presyncope Telemetry reviewed remains in atrial fibrillation with heart rates up to 90s to 100 Problem List Medical Problems: (1) Left lower lobe pneumonia Status: Acute Review of Systems Constitutional: No fever, No chills Respiratory: No cough, No sputum, No shortness of breath Cardiac: + chest pain Abdomen: No pain, No nausea Musculoskeletal: + joint pain Psychiatric: No depression symptoms Heme: No abnormal bleeding/bruising Endo: + fatigue Skin: No rash Objective Vital Signs Last Vital Signs Documentation Date Time Temp Pulse Resp B/P (MAP) Pulse Ox O2 Delivery O2 Flow Rate FiO2 08/17/17 08:00 Room Air 08/17/17 07:46 36.9 101 18 134/77 (96) 92 08/16/17 15:37 2.0 Physical Exam: General Appearance: no apparent distress Neck: + JVD (Approximately 829) Respiratory/Chest: no respiratory distress, + crackles (At right base) Cardiovascular: + systolic murmur (2/6 systolic ejection murmur heard best left upper sternal border) Abdomen: normal bowel sounds, non tender, soft Extremities: no pedal edema, no calf tenderness Neurologic/Psychiatric: no motor/sensory deficits, alert, oriented x 3 Skin: warm/dry Assessment and Plan 1. New onset atrial fibrillation. 2. Suspected community-acquired pneumonia. 3. Questionable recent viral illness. 4. Borderline wall motion abnormality on echocardiogram. 5. Mild mitral regurgitation. 6. Dyslipidemia. 7. Hypokalemia. Remains asymptomatic from an atrial fibrillation standpoint. Heart rate elevated from prior but still reasonably controlled No evidence of cardiac ischemia. --can transition to NOAC today --recommend starting low-dose beta-rafi. --continue home statin From a cardiac standpoint okay for discharge when medically issue stable. If remains in atrial fibrillation and were to become symptomatic, after 4 weeks could consider cardioversion. Medications: Current Inpatient Medications Medications (Trade) Dose Ordered Sig/Mony Route Start Time Stop Time Status Last Admin Dose Admin Heparin Sodium/ Dextrose 500 ml @ 26 mls/hr [id number] PRN IV 08/16/17 12:34 09/15/17 12:33 08/17/17 06:06 29 MLS/HR Hydromorphone HCl (Dilaudid Inj) 1 mg Q2H PRN IV 08/16/17 14:00 08/30/17 13:59 08/16/17 17:29 1 MG Atorvastatin Calcium (Lipitor Tab) 20 mg DAILY PO 08/17/17 09:00 09/16/17 08:59 08/17/17 07:34 20 MG Sodium Chloride 1,000 ml @ 50 mls/hr Q20H IV 08/16/17 13:54 09/15/17 13:53 08/16/17 16:59 50 MLS/HR Acetaminophen (Tylenol Tab) 650 mg Q4H PRN PO 08/16/17 14:00 09/15/17 13:59 08/17/17 03:45 650 MG Al Hydrox/Mg Hydrox/Simethicone (Maalox Max Susp) 15 ml Q4H PRN PO 08/16/17 14:00 09/15/17 13:59 Magnesium Hydroxide (Milk Of Magnesia Susp) 30 ml Q12H PRN PO 08/16/17 14:00 09/15/17 13:59 Zolpidem Tartrate (Ambien Tab) 5 mg HSZ PRN PO 08/16/17 14:00 09/15/17 13:59 Ondansetron HCl (Zofran Inj) 4 mg Q6H PRN IV 08/16/17 14:00 09/15/17 13:59 Nitroglycerin (Nitrostat Tab) 0.4 mg UD PRN SL 08/16/17 14:00 09/15/17 13:59 Polyethylene (Miralax Powder Packet) 17 gm DAILY PRN PO 08/16/17 14:00 09/15/17 13:59 Levofloxacin 500 mg/Prmx 100 ml @ 100 mls/hr Q24H IV 08/16/17 20:00 08/23/17 19:59 08/16/17 20:35 100 MLS/HR Lactobacillus Acidophilus (Lactinex Granules Pack) 1 gm TIDM PO 08/16/17 17:37 09/15/17 17:59 08/17/17 07:33 1 GM Miscellaneous Information (Consult) 1 ea UD PRN N/A 08/16/17 14:30 09/15/17 14:29 Acetylcysteine (Acetylcysteine Cap) 1,200 mg Q12H PO 08/17/17 06:00 08/19/17 06:01 08/17/17 06:07 1,200 MG Ioversol (Optiray 320) 118 ml UD PRN IV 08/16/17 16:15 08/20/17 16:14 Vancomycin HCl 1500 mg/Sodium Chloride 530 ml @ 200 mls/hr Q16H IV 08/17/17 08:00 08/24/17 07:59 08/17/17 07:38 200 MLS/HR Lab Results: 08/17/17 05:29 Red Blood Count 4.12, Mean Corpuscular Volume 91.0, Mean Corpuscular Hemoglobin 31.3, Mean Corpuscular Hemoglobin Concent 34.4, Mean Platelet Volume 10.4, Neutrophils (%) (Auto) 70.5, Lymphocytes (%) (Auto) 16.5, Monocytes (%) (Auto) 12.0, Eosinophils (%) (Auto) 0.6, Basophils (%) (Auto) 0.1, Neutrophils # (Auto ) 11.23, Lymphocytes # (Auto) 2.63, Monocytes # (Auto) 1.91, Eosinophils # (Auto ) 0.10, Basophils # (Auto) 0.02 08/17/17 05:29 Test 08/16/17 11:00 08/16/17 11:50 08/16/17 23:50 08/17/17 00:00 Prothrombin Time 10.6 SECONDS (9.0-12.0) Prothromb Time International Ratio 1.0 (0.9-1.1) D-Dimer 640 ug/L FEU (0-500) Direct Bilirubin 0.2 mg/dl (0-0.2) Creatine Kinase MB 1.1 ng/ml (0.5-3.6) Creatine Kinase MB Ratio 2.1 (0-3.0) Lipase 210 U/L (73-393) Thyroid Stimulating Hormone (TSH) 2.080 uIu/ml (0.300-4.500) Urine Color DK YELLOW Urine Appearance CLEAR (CLEAR) Urine pH 5.5 (4.5-7.5) Urine Specific [place] 1.028 (1.000-1.030) Urine Protein TRACE (NEG) Urine Glucose (UA) NEG (NEG) Urine Ketones TRACE (NEG) Urine Occult Blood NEG (NEG) Urine Nitrite NEG (NEG) Urine Bilirubin NEG (NEG) Urine Urobilinogen NEG (NEG) Urine Leukocyte Esterase NEG (NEG) Urine WBC (Auto) 1-5 /hpf (0-5) Urine RBC (Auto) 0-4 /hpf (0-4) Urine Hyaline Casts (Auto) 1-5 /lpf (0-5) Urine Epithelial Cells (Auto) 5-10 /lpf (0-5) Urine Bacteria (Auto) NEG (NEG) Test 08/17/17 05:29 08/17/17 08:30 White Blood Count 15.94 K/uL (4.8-10.8) Red Blood Count 4.12 M/uL (4.7-6.1) Hemoglobin 12.9 g/dL (14.0-18.0) Hematocrit 37.5 % (42-52) Mean Corpuscular Volume 91.0 fL (80-100) Mean Corpuscular Hemoglobin 31.3 pg (25-34) Mean Corpuscular Hemoglobin Concent 34.4 g/dl (32-36) Platelet Count 222 K/uL (130-400) Mean Platelet Volume 10.4 fL (7.4-10.4) Neutrophils (%) (Auto) 70.5 % Lymphocytes (%) (Auto) 16.5 % Monocytes (%) (Auto) 12.0 % Eosinophils (%) (Auto) 0.6 % Basophils (%) (Auto) 0.1 % Neutrophils # (Auto) 11.23 K/uL (1.4-6.5) Lymphocytes # (Auto) 2.63 K/uL (1.2-3.4) Monocytes # (Auto) 1.91 K/uL (0.11-0.59) Eosinophils # (Auto) 0.10 K/uL (0-0.5) Basophils # (Auto) 0.02 K/uL (0-0.2) RDW Standard Deviation 43.4 fL (36.4-46.3) RDW Coefficient of Variation 13.0 % (11.5-14.5) Immature Granulocyte % (Auto) 0.3 % Immature Granulocyte # (Auto) 0.05 K/uL (0.00-0.02) Activated Partial Thromboplast Time 87.0 SECONDS (21.0-31.0) Partial Thromboplastin Ratio 3.3 Anion Gap 8.0 mmol/L (3-11) Est Creatinine Clear Calc Drug Dose 58.7 ml/min Estimated GFR () 68.6 Estimated GFR (Non- 59.1 BUN/Creatinine Ratio 15.8 (10-20) Estimated Average Glucose 114 mg/dl Hemoglobin A1c 5.6 % (4.5-5.6) Calcium Level 8.0 mg/dl (8.5-10.1) Total Bilirubin 1.1 mg/dl (0.2-1) Aspartate Amino Transf (AST/SGOT) 12 U/L (15-37) Alanine Aminotransferase (ALT/SGPT) 25 U/L (12-78) Alkaline Phosphatase 52 U/L (45-117) Total Creatine Kinase 32 U/L (39-308) Total Protein 6.6 gm/dl (6.4-8.2) Albumin 2.9 gm/dl (3.4-5.0) Globulin 3.7 gm/dl (2.5-4.0) Albumin/Globulin Ratio 0.8 (0.9-2) Triglycerides Level 82 mg/dl (0-150) Cholesterol Level 106 mg/dl (0-200) HDL Cholesterol 59 mg/dl LDL Cholesterol, Calculated 31 mg/dl VLDL Cholesterol, Calculated 16 mg/dl Cholesterol/HDL Ratio 1.8 Troponin I < 0.015 ng/ml (0-0.045) Date/Time Source Procedure Growth Status 08/16/17 18:30 Nasal MRSA DNA Surveillance Screen - Final Specimen Negative for MRSA by DNA Probe Complete
--- NOTE | 2017-08-17 10:11 | Clinical Documentation Query ---
CLINICAL DOCUMENTATION QUERY 81 yo male admitted with acute respiratory failure and new onset atrial fibrillation. In your clinical opinion is this patient being managed for: ( ) Chronic diastolic CHF ( ) Not Agree ( ) Other explanation of clinical findings (Please Explain) ( ) Unable to determine (Please Define) ( ) Need to Discuss The medical record reflects the following clinical findings, treatment, and risk factors. Clinical Indicators: Echo severe left artial enlargement, left ventricular hypertrophy; EF = 45-50% Treatment: Echo, Cardiology consult, I&O Risk Factors: Age, new onset A-fib Please clarify and document your clinical opinion in the progress notes and discharge summary. Terms such as "probable", "suspected", "likely", "questionable", "possible", or "still to be ruled out" are acceptable. IF IN AGREEMENT, YOU MUST DOCUMENT ABOVE DIAGNOSTIC STATEMENT IN DAILY PROGRESS NOTES AND DISCHARGE SUMMARY. This document is not part of the patient's record. Thank You, Madhuri Knapp RN [phone]
[2017-08-17 10:16] LABS: INFLUENZA A PCR Neg for Influ A (NEG); INFLUENZA B PCR Neg for Influ B (NEG)
[2017-08-17] MEDS ORDERED: RIVAROXABAN 20 MG TAB PO ONE (11:30)
[2017-08-17] MEDS ORDERED: METOPROLOL TARTRATE 25 MG TAB PO ONE (11:30)
[2017-08-17] MEDS ORDERED: LEVOFLOXACIN 500 MG TAB PO ONE (11:35)
--- NOTE | 2017-08-17 12:52 | Hospitalist Progress Note ---
Hospitalist Progress Note Date of Service Aug 17, 2017. (Dalia Brand PA-C) Subjective Pt evaluation today including: conversation w/ patient, conversation w/ family , physical exam, chart review, lab review, review of studies, review of inpatient medication list Patient seen and evaluated. Remains in rate controlled A Fib. Is asymptomatic from this. Continues to have pleuritic CP in the upper chest. He had a fever overnight. No cough or URI symptoms at this time. Flu negative States he feels better compared to when he comes in. Discussed NOAC and he is in agreement to do Xarelto but co-pay is $47 and said this is affordable and will give coupon for one month free. Constitutional: No fever, No chills, No weakness, No fatigue Eyes: No worsening of vision ENT: No nasal symptoms, No sore throat, No trouble swallowing Respiratory: No cough, No shortness of breath Cardiovascular: + chest pain (pleuritic), No palpitations Abdomen: No pain, No nausea, No vomiting, No diarrhea, No constipation, No GI bleeding Musculoskeletal: No swelling, No calf pain Male : No dysuria Heme: No abnormal bleeding/bruising Skin: No rash (Dalia Brand, TASHA-C) Medications Current Inpatient Medications Medications (Trade) Dose Ordered Sig/Mony Route Start Time Stop Time Status Last Admin Dose Admin Hydromorphone HCl (Dilaudid Inj) 1 mg Q2H PRN IV 08/16/17 14:00 08/30/17 13:59 08/16/17 17:29 1 MG Atorvastatin Calcium (Lipitor Tab) 20 mg DAILY PO 08/17/17 09:00 09/16/17 08:59 08/17/17 07:34 20 MG Acetaminophen (Tylenol Tab) 650 mg Q4H PRN PO 08/16/17 14:00 09/15/17 13:59 08/17/17 03:45 650 MG Al Hydrox/Mg Hydrox/Simethicone (Maalox Max Susp) 15 ml Q4H PRN PO 08/16/17 14:00 09/15/17 13:59 Magnesium Hydroxide (Milk Of Magnesia Susp) 30 ml Q12H PRN PO 08/16/17 14:00 09/15/17 13:59 Zolpidem Tartrate (Ambien Tab) 5 mg HSZ PRN PO 08/16/17 14:00 09/15/17 13:59 Ondansetron HCl (Zofran Inj) 4 mg Q6H PRN IV 08/16/17 14:00 09/15/17 13:59 Nitroglycerin (Nitrostat Tab) 0.4 mg UD PRN SL 08/16/17 14:00 09/15/17 13:59 Polyethylene (Miralax Powder Packet) 17 gm DAILY PRN PO 08/16/17 14:00 09/15/17 13:59 Lactobacillus Acidophilus (Lactinex Granules Pack) 1 gm TIDM PO 08/16/17 17:37 09/15/17 17:59 08/17/17 11:08 1 GM Acetylcysteine (Acetylcysteine Cap) 1,200 mg Q12H PO 08/17/17 06:00 08/19/17 06:01 08/17/17 06:07 1,200 MG Ioversol (Optiray 320) 118 ml UD PRN IV 08/16/17 16:15 08/20/17 16:14 Metoprolol Tartrate (Lopressor Tab) 12.5 mg BID PO 08/17/17 21:00 09/16/17 20:59 Rivaroxaban (Xarelto Tab) 20 mg DAILY PO 08/18/17 09:00 09/17/17 08:59 Levofloxacin (Levaquin Tab) 500 mg DAILY@11 PO 08/18/17 11:00 08/25/17 10:59 (Dalia Brand, GRECIA) Objective Vital Signs Date Time Temp Pulse Resp B/P (MAP) Pulse Ox O2 Delivery O2 Flow Rate FiO2 08/17/17 12:00 Room Air 08/17/17 11:24 36.7 91 18 115/58 (77) 94 Room Air 08/17/17 08:00 Room Air 08/17/17 07:46 36.9 101 18 134/77 (96) 92 Room Air 08/17/17 04:39 37.3 08/17/17 04:00 Room Air 08/17/17 03:35 37.9 88 18 120/63 (82) 90 Room Air 08/17/17 00:00 Room Air 08/16/17 23:25 36.9 98 18 101/69 (80) 91 Room Air 08/16/17 20:16 36.7 83 20 108/63 (78) 91 Room Air 08/16/17 20:00 Room Air 08/16/17 16:30 36.5 84 18 109/68 Room Air 08/16/17 15:37 76 18 105/68 94 Nasal Cannula 2.0 08/16/17 15:00 08/16/17 13:48 82 20 106/78 96 (Dalia Brand PA-C) Physical Exam General Appearance: WD/WN, no apparent distress Eyes: sclerae normal ENT: hearing grossly normal Neck: supple, no JVD, trachea midline Respiratory/Chest: no respiratory distress, no accessory muscle use, + crackles (L base) Cardiovascular: no gallop, no murmur, + irregularly irregular Abdomen: normal bowel sounds, non tender, soft Extremities: no pedal edema, no calf tenderness Neurologic/Psychiatric: alert, oriented x 3 Skin: normal color, warm/dry (Dalia Brand PA-C) Laboratory Results Last 24 Hours Test 08/16/17 15:24 08/16/17 19:50 08/16/17 22:55 08/16/17 23:50 Total Creatine Kinase 44 U/L Troponin I < 0.015 ng/ml Activated Partial Thromboplast Time 55.1 SECONDS Partial Thromboplastin Ratio 2.1 Test 08/17/17 00:00 08/17/17 02:07 08/17/17 05:29 08/17/17 08:30 Influenza Type A (RT-PCR) Neg for Influ A Influenza Type B (RT-PCR) Neg for Influ B Troponin I < 0.015 ng/ml < 0.015 ng/ml White Blood Count 15.94 K/uL Red Blood Count 4.12 M/uL Hemoglobin 12.9 g/dL Hematocrit 37.5 % Mean Corpuscular Volume 91.0 fL Mean Corpuscular Hemoglobin 31.3 pg Mean Corpuscular Hemoglobin Concent 34.4 g/dl Platelet Count 222 K/uL Mean Platelet Volume 10.4 fL Neutrophils (%) (Auto) 70.5 % Lymphocytes (%) (Auto) 16.5 % Monocytes (%) (Auto) 12.0 % Eosinophils (%) (Auto) 0.6 % Basophils (%) (Auto) 0.1 % Neutrophils # (Auto) 11.23 K/uL Lymphocytes # (Auto) 2.63 K/uL Monocytes # (Auto) 1.91 K/uL Eosinophils # (Auto) 0.10 K/uL Basophils # (Auto) 0.02 K/uL RDW Standard Deviation 43.4 fL RDW Coefficient of Variation 13.0 % Immature Granulocyte % (Auto) 0.3 % Immature Granulocyte # (Auto) 0.05 K/uL Activated Partial Thromboplast Time 87.0 SECONDS Partial Thromboplastin Ratio 3.3 Sodium Level 133 mmol/L Potassium Level 3.7 mmol/L Chloride Level 99 mmol/L Carbon Dioxide Level 26 mmol/L Anion Gap 8.0 mmol/L Blood Urea Nitrogen 18 mg/dl Creatinine 1.16 mg/dl Est Creatinine Clear Calc Drug Dose 58.7 ml/min Estimated GFR () 68.6 Estimated GFR (Non- 59.1 BUN/Creatinine Ratio 15.8 Random Glucose 106 mg/dl Estimated Average Glucose 114 mg/dl Hemoglobin A1c 5.6 % Calcium Level 8.0 mg/dl Total Bilirubin 1.1 mg/dl Aspartate Amino Transf (AST/SGOT) 12 U/L Alanine Aminotransferase (ALT/SGPT) 25 U/L Alkaline Phosphatase 52 U/L Total Creatine Kinase 32 U/L Total Protein 6.6 gm/dl Albumin 2.9 gm/dl Globulin 3.7 gm/dl Albumin/Globulin Ratio 0.8 Triglycerides Level 82 mg/dl Cholesterol Level 106 mg/dl HDL Cholesterol 59 mg/dl LDL Cholesterol, Calculated 31 mg/dl VLDL Cholesterol, Calculated 16 mg/dl Cholesterol/HDL Ratio 1.8 (Dalia Brand, PA-C) Assessment and Plan 81 years old man with past medical history of dyslipidemia, recent upper respiratory tract infection presented to the ED with severe bilateral pleuritic chest pain referred to the back with left lower lung density and new onset atrial fibrillation. New Onset Atrial Fibrillation: - Echo - EF 45-50%; severe left atrial enlargement - Initiate Metoprolol 12.5 mg BID - Stop heparin gtt and start Xarelto 20 mg daily - Cardiology following - appreciate recommendations - could consider cardioversion after at leat 4 weeks anticoagulation Acute Hypoxic Respiratory Failure 2/2 CAP: - Recent URI as outpatient; Reporting known atelectasis in the L lung due to significant pneumonia as a child - Levaquin 500 mg daily HLD: - Atorvastatin 20 mg daily Code Status: FULL RESUSCITATION Disposition: - Continue Abx for CAP - if afebrile > 24 hours possible D/C tomorrow Continued [facility] stay due to: fever Discharge planning: home (Dalia Brand, PA-C) Attending Attestation & Progress Note - Pt seen/examined, chart reviewed, care plan d/w TASHA Brand. I agree w/ the goodman components of her documentation. Pt "feels better." Denies dyspnea. No substernal chest pain. Tele - rate-controlled a. fib. VSS Tm 37.9 gen - nad neck - mild JVD heart - irregular, s1, s2 lungs - bibasilar rales, no wheeze abd - soft, NT ext - trace edema b/l Na 133 Cr 1.1 cxr - possible volume overload, LLL infiltrate A/P: 1. probable LLL pneumonia, community-acquired 2. new-onset rate-controlled a. fib 3. mild systolic CHF, likely acute, in setting of #2 - appears clinically euvolemic/slightly hypervolemic 4. hyponatremia 5. hypokalemia 6. chest pain, unlikely ischemic, probably due to #1 stop IVF agree with stopping heparin; start xarelto for anticoagulation in setting of a. fib cont abx for pneumonia keep on telemetry labs in am Nelson Blair MD (Nelson Blair MD)
--- NOTE | 2017-08-17 13:20 | DIAGNOSTIC IMAGING REPORT ---
CHEST 2 VIEWS ROUTINE CLINICAL HISTORY: 81 years-old Male presenting with BIBASILAR RALES, EVAL FOR PNEUMONIA OR EDEMA. TECHNIQUE: PA and lateral views of the chest were obtained. COMPARISON: 08/16/2017. FINDINGS: Atherosclerosis of aortic arch. Cardiac silhouette enlarged. Prominence of the main pulmonary artery suspected. Mild pulmonary vascular prominence. Mildly low lung volumes with hypoventilatory changes. Scattered hazy and nodular opacities at the lung bases greater on the left. Trace bilateral pleural effusions suspected. No pneumothorax. Degenerative changes of the thoracic spine. Upper abdomen normal. IMPRESSION: 1. Cardiomegaly with volume overload. 2. Hazy left basilar opacity could represent developing edema, aspiration, or infection. 3. Trace bilateral pleural effusions. Electronically signed by: Garret Friend M.D. 08/17/2017 1:19 PM Dictated Date/Time: 08/17/2017 1:09 PM
[2017-08-17 14:17] LABS: PTT PATIENT 35.4 SECONDS (21.0-31.0)
[2017-08-17] MEDS: METOPROLOL TARTRATE 25 MG TAB PO SCH (20:41)
[2017-08-18 00:15] VITALS: BP 91/52; PULSE 69; TEMP 37.4; O2SAT 93
[2017-08-18 04:48] VITALS: BP 116/74; PULSE 72; TEMP 37.4; O2SAT 91
[2017-08-18 06:52] LABS: HEMATOCRIT 36.9 % (42-52); HEMOGLOBIN 12.6 g/dL (14.0-18.0); MEAN CELL VOLUME 92.7 fL (80-100); MEAN CORPUSCULAR HEMOGLOBIN 31.7 pg (25-34); MEAN CORPUSCULAR HGB CONC 34.1 g/dl (32-36); MEAN PLATELET VOLUME 10.6 fL (7.4-10.4); PLATELET COUNT 231 K/uL (130-400); RED CELL DISTRIBUTION WIDTH CV 12.7 % (11.5-14.5); RED CELL DISTRIBUTION WIDTH SD 43.2 fL (36.4-46.3); WHITE BLOOD COUNT 13.09 K/uL (4.8-10.8)
[2017-08-18 07:28] LABS: CALCIUM 8.4 mg/dl (8.5-10.1); CREATININE 1.09 mg/dl (0.60-1.40); POTASSIUM 3.9 mmol/L (3.5-5.1)
[2017-08-18] MEDS: METOPROLOL TARTRATE 25 MG TAB PO SCH (07:58)
[2017-08-18] MEDS: ATORVASTATIN 20 MG TAB PO SCH (07:59)
[2017-08-18] MEDS: LACTOBACILLUS ACIDOPHILUS 1 GM PACK PO SCH ×2 (07:59→11:12)
[2017-08-18 08:28] VITALS: BP 109/72; PULSE 68; TEMP 37.3; O2SAT 89
[2017-08-18] MEDS ORDERED: RIVAROXABAN 20 MG TAB PO SCH (09:00)
[2017-08-18] MEDS ORDERED: FUROSEMIDE INJ 20 MG in SYRINGE 0 ML IV ONE (09:30)
[2017-08-18] MEDS ORDERED: SACC250C3 PO (10:26)
[2017-08-18] MEDS ORDERED: LVQ750 PO (10:26)
[2017-08-18] MEDS ORDERED: XRL20 PO (10:26)
[2017-08-18] MEDS ORDERED: TPRSR25 PO (10:26)
--- NOTE | 2017-08-18 10:30 | Discharge Instructions ---
Discharge Instructions Date of Service Aug 18, 2017. Admission Reason for Admission: New Onset A-Fib Admission Date: Aug 16, 2017 at 14:07 Admission Diagnosis: New Onset A-Fib. Discharge Discharge Diagnosis / Problem: Atrial Fibrillation Care Plan - Problem: Medical Problems: (1) Left lower lobe pneumonia Discharge Goals Goal(s): Decrease discomfort, Improve function, Increase independence Activity Recommendations Activity Limitations: resume your previous activity . Instructions / Follow-Up Instructions / Follow-Up Atrial Fibrillation: - This is when the top of your heart (atria) quiver or shake however the bottom of your heart (ventricles) continue to pump blood to the rest of your body. The main thing is to keep your heart rate under control. - You were started on Metoprolol. This is a blood pressure medication but also helps control heart rate and also allows your heart to not have to work as hard to pump blood. - You were also started on Xarelto. This is a blood thinner to help prevent strokes in people with atrial fibrillation. -- You will take this once a day -- While on a blood thinners you may bruise easily. If you have bleeding, apply firm pressure to the site for at least 5 minutes. If bleeding does not stop please seek help. - Our pillowcase cleaner will help set up a follow-up appointment with your family doctor and the cardiologists for ongoing monitoring. - Take Lasix 20 mg tomorrow and Tuesday to help pull fluid. Then take Lasix just as needed on days that you notice more than a 3-4 lbs weight gain. Recommend to weight yourself daily at the same time each day. When you take Lasix take a potassium supplement to prevent getting low Potassium levels Possible Pneumonia: - You will complete a course of Levaquin (this is your antibiotic) - You had a dose today in the hospital so start this on 08/19. Current Hospital Diet Patient's current hospital diet: AHA Diet (Heart Healthy) Discharge Diet Recommended Diet: AHA Diet (Heart Healthy) Pending Studies Studies pending at discharge: no Laboratory Results Hemoglobin A1c Test 08/17/17 05:29 Range/Units Estimated Average Glucose 114 mg/dl Hemoglobin A1c 5.6 4.5-5.6 % Lipid Panel Test 08/17/17 05:29 Range/Units Triglycerides Level 82 0-150 mg/dl Cholesterol Level 106 0-200 mg/dl HDL Cholesterol 59 mg/dl Cholesterol/HDL Ratio 1.8 LDL Cholesterol, Calculated 31 mg/dl Test Results: Hemoglobin A1c Test 08/17/17 05:29 Range/Units Estimated Average Glucose 114 mg/dl Hemoglobin A1c 5.6 4.5-5.6 % Lipid Panel Test 08/17/17 05:29 Range/Units Triglycerides Level 82 0-150 mg/dl Cholesterol Level 106 0-200 mg/dl HDL Cholesterol 59 mg/dl Cholesterol/HDL Ratio 1.8 LDL Cholesterol, Calculated 31 mg/dl Medical Emergencies . Who to Call and When: Medical Emergencies: If at any time you feel your situation is an emergency, please call 911 immediately. . Non-Emergent Contact Non-Emergency issues call your: Primary Care Provider Call Non-Emergent contact if: you have a fever, your pain is concerning you, you have any medication questions . . "Provider Documentation" section prepared by Dalia Brand. . VTE Core Measure Inpt VTE Proph given/why not?: Other Anticoagulation Care Plan - Instructions: Provider Instructions: Call 911 and go to the Emergency Room if: * You have tightness or pain in your chest that does not go away with rest or Nitroglycerin * You are very short of breath even with rest Call your doctor if any of the following symptoms or problems start or get worse: * Shortness of breath or difficulty breathing * Wake up at night short of breath * Chest pain * Cough * Swelling of your hands, fee, or legs * More fatigued or tired with your normal activity * Palpitations - sudden fast heart beats WEIGHT * Weigh yourself every morning after using the bathroom. * Use the same scale. * Wear the same amount of clothing. * Write your weight down on your chart. * Call your doctor if you gain more than 2-3 pounds in 1-2 days. MEDICATIONS * Use this discharge instruction sheet for instructions. * Take your medications at the time your doctor ordered. * Do not skip a dose of your medicines. * If you miss a dose of medicine, take as soon as possible, but DO NOT DOUBLE A DOSE. * Read your medicine information when you get home. * Know all of the side effects of your medicine. * Call your doctor's office if you have any side effects. * Be sure all of your doctors know what medicine and herbs you take (including cold, flu, and herbal medicine). * Pain Medicine: If you do not get relief from your pain, please call your doctor for help. Take the following with you to your follow-up doctor appointments: * Weight Chart * Medication List * List of questions Do not drink excessive alcohol, beer or wine. [facility] [place] Recommendations: Call your doctor if: * Temperature above 101 degrees * Pain not relieved by pain medicine ordered * There is increased drainage or redness from any incision * You have any unanswered questions or concerns. Your Doctors Instructions noted above were prepared by provider Dalia Brand. Discharge Instructions Admission Admission Date: Aug 16, 2017 at 14:07 Admission Diagnosis: New Onset A-Fib. Discharge Care Plan - Problem: Medical Problems: (1) Left lower lobe pneumonia Care Plan - Goal(s): Decrease discomfort, Improve function, Increase independence Care Plan - Instructions: Activity Recommendations: no limitations Recommended Home Diet: AHA Phase I (2gmNa/LoCho) Provider Instructions: Call 911 and go to the Emergency Room if: * You have tightness or pain in your chest that does not go away with rest or Nitroglycerin * You are very short of breath even with rest Call your doctor if any of the following symptoms or problems start or get worse: * Shortness of breath or difficulty breathing * Wake up at night short of breath * Chest pain * Cough * Swelling of your hands, fee, or legs * More fatigued or tired with your normal activity * Palpitations - sudden fast heart beats WEIGHT * Weigh yourself every morning after using the bathroom. * Use the same scale. * Wear the same amount of clothing. * Write your weight down on your chart. * Call your doctor if you gain more than 2-3 pounds in 1-2 days. MEDICATIONS * Use this discharge instruction sheet for instructions. * Take your medications at the time your doctor ordered. * Do not skip a dose of your medicines. * If you miss a dose of medicine, take as soon as possible, but DO NOT DOUBLE A DOSE. * Read your medicine information when you get home. * Know all of the side effects of your medicine. * Call your doctor's office if you have any side effects. * Be sure all of your doctors know what medicine and herbs you take (including cold, flu, and herbal medicine). * Pain Medicine: If you do not get relief from your pain, please call your doctor for help. Take the following with you to your follow-up doctor appointments: * Weight Chart * Medication List * List of questions Do not drink excessive alcohol, beer or wine. VTE Core Measure Inpt VTE Proph given/why not?: Other Anticoagulation Laboratory Results Test Results: Hemoglobin A1c Test 08/17/17 05:29 Range/Units Estimated Average Glucose 114 mg/dl Hemoglobin A1c 5.6 4.5-5.6 % Lipid Panel Test 08/17/17 05:29 Range/Units Triglycerides Level 82 0-150 mg/dl Cholesterol Level 106 0-200 mg/dl HDL Cholesterol 59 mg/dl Cholesterol/HDL Ratio 1.8 LDL Cholesterol, Calculated 31 mg/dl [facility] [place] Recommendations: Call your doctor if: * Temperature above 101 degrees * Pain not relieved by pain medicine ordered * There is increased drainage or redness from any incision * You have any unanswered questions or concerns. Your Doctors Instructions noted above were prepared by provider Dalia Brand.
[2017-08-18] MEDS ORDERED: LEVOFLOXACIN 750 MG TAB PO SCH (11:00)
[2017-08-18] MEDS ORDERED: LEVOFLOXACIN 500 MG TAB PO SCH (11:00)
[2017-08-18 12:00] VITALS: BP 104/66; PULSE 66; TEMP 36.9; O2SAT 95
--- NOTE | 2017-08-18 12:02 | Cardiology Follow-Up ---
Subjective Subjective Date of Service: Aug 18, 2017. Pt evaluation today including: conversation w/ patient, physical exam, chart review, lab review, review of studies, review of inpatient medication list Additional Details: Feeling much better today. Chest pain improved. No palpitations. Tele reviewed -- remains in atrial fib, HR 60-70s Problem List Medical Problems: (1) Left lower lobe pneumonia Status: Acute Review of Systems Constitutional: No fever, No chills, No weakness, No fatigue Eyes: No worsening of vision ENT: No nasal symptoms, No sore throat, No trouble swallowing Respiratory: No cough, No shortness of breath Cardiac: + chest pain (pleuritic), No palpitations Abdomen: No pain, No nausea, No vomiting, No diarrhea, No constipation, No GI bleeding Musculoskeletal: No swelling, No calf pain Male : No dysuria Psychiatric: No depression symptoms Heme: No abnormal bleeding/bruising Endo: + fatigue Skin: No rash Objective Vital Signs Last Vital Signs Documentation Date Time Temp Pulse Resp B/P (MAP) Pulse Ox O2 Delivery O2 Flow Rate FiO2 08/18/17 08:28 37.3 68 20 109/72 (84) 89 Room Air 08/16/17 15:37 2.0 Physical Exam: General Appearance: no apparent distress ENT: hearing grossly normal Neck: supple, no JVD, trachea midline Respiratory/Chest: no respiratory distress, no accessory muscle use, + crackles (L base) Cardiovascular: no gallop, no murmur, + irregularly irregular Abdomen: normal bowel sounds, non tender, soft Extremities: no pedal edema, no calf tenderness Neurologic/Psychiatric: alert, oriented x 3 Skin: normal color, warm/dry Assessment and Plan 1. New onset atrial fibrillation. 2. Suspected community-acquired pneumonia. 3. Questionable recent viral illness. 4. Borderline wall motion abnormality on echocardiogram. 5. Mild mitral regurgitation. 6. Dyslipidemia. 7. Hypokalemia. Feeling well Remains in afib but well rate controlled and asymptomatic. -- From a cardiac standpoint OK for discharge today. -- Continue Xarelto -- Continue low dose beta-rafi -- No change to home statin Follow-up with cardiology in 4 weeks. Discharge planning: home Medications: Current Inpatient Medications Medications (Trade) Dose Ordered Sig/Mony Route Start Time Stop Time Status Last Admin Dose Admin Hydromorphone HCl (Dilaudid Inj) 1 mg Q2H PRN IV 08/16/17 14:00 08/30/17 13:59 08/16/17 17:29 1 MG Atorvastatin Calcium (Lipitor Tab) 20 mg DAILY PO 08/17/17 09:00 09/16/17 08:59 08/18/17 07:59 20 MG Acetaminophen (Tylenol Tab) 650 mg Q4H PRN PO 08/16/17 14:00 09/15/17 13:59 08/17/17 03:45 650 MG Al Hydrox/Mg Hydrox/Simethicone (Maalox Max Susp) 15 ml Q4H PRN PO 08/16/17 14:00 09/15/17 13:59 Magnesium Hydroxide (Milk Of Magnesia Susp) 30 ml Q12H PRN PO 08/16/17 14:00 09/15/17 13:59 Zolpidem Tartrate (Ambien Tab) 5 mg HSZ PRN PO 08/16/17 14:00 09/15/17 13:59 Ondansetron HCl (Zofran Inj) 4 mg Q6H PRN IV 08/16/17 14:00 09/15/17 13:59 Nitroglycerin (Nitrostat Tab) 0.4 mg UD PRN SL 08/16/17 14:00 09/15/17 13:59 Polyethylene (Miralax Powder Packet) 17 gm DAILY PRN PO 08/16/17 14:00 09/15/17 13:59 Lactobacillus Acidophilus (Lactinex Granules Pack) 1 gm TIDM PO 08/16/17 17:37 09/15/17 17:59 08/18/17 11:12 1 GM Ioversol (Optiray 320) 118 ml UD PRN IV 08/16/17 16:15 08/20/17 16:14 Metoprolol Tartrate (Lopressor Tab) 12.5 mg BID PO 08/17/17 21:00 09/16/17 20:59 08/18/17 07:58 12.5 MG Rivaroxaban (Xarelto Tab) 20 mg DAILY PO 08/18/17 09:00 09/17/17 08:59 08/18/17 07:59 20 MG Levofloxacin (Levaquin Tab) 750 mg DAILY@11 PO 08/18/17 11:00 08/25/17 10:59 08/18/17 11:36 750 MG Lab Results: 08/18/17 06:22 08/18/17 06:22 Test 08/17/17 13:33 08/18/17 06:22 Activated Partial Thromboplast Time 35.4 SECONDS (21.0-31.0) Partial Thromboplastin Ratio 1.4 Troponin I < 0.015 ng/ml (0-0.045) Red Blood Count 3.98 M/uL (4.7-6.1) Mean Corpuscular Volume 92.7 fL (80-100) Mean Corpuscular Hemoglobin 31.7 pg (25-34) Mean Corpuscular Hemoglobin Concent 34.1 g/dl (32-36) RDW Standard Deviation 43.2 fL (36.4-46.3) RDW Coefficient of Variation 12.7 % (11.5-14.5) Mean Platelet Volume 10.6 fL (7.4-10.4) Anion Gap 7.0 mmol/L (3-11) Est Creatinine Clear Calc Drug Dose 62.1 ml/min Estimated GFR () 73.9 Estimated GFR (Non- 63.8 BUN/Creatinine Ratio 12.7 (10-20) Calcium Level 8.4 mg/dl (8.5-10.1)
[2017-08-18] MEDS ORDERED: FURO-85 PO (12:52)
[2017-08-18] MEDS ORDERED: MCRK20 PO (12:52)
[2017-08-18 13:22] VITALS: BP 104/66; PULSE 66; TEMP 36.9; O2SAT 95
--- NOTE | 2017-08-18 13:37 | Discharge Summary ---
Discharge Summary Date of Service Aug 18, 2017. Discharge Summary Admission Date: Aug 16, 2017 at 14:07 Discharge Date: Aug 18, 2017 Discharge Disposition: Home Principal Diagnosis: New Onset Atrial Fibrillation Problems/Secondary Diagnoses: 1. HLD Procedures: CHEST COMBO ANGIO DISSECTION FINDINGS: Environmental Health Officer topogram: Unremarkable. Vasculature: The study is adequate for assessment of the aorta. Precontrast imaging demonstrates no evidence of intramural hematoma. Postcontrast imaging demonstrates no evidence of dissection, penetrating ulcer, or aneurysm. Allowing for timing of the contrast bolus, no gross evidence of a filling defect within the pulmonary arteries to suggest embolus. Main pulmonary artery enlarged measuring 3.8 cm in transverse dimension. No flattening of the interventricular septum. No intracardiac filling defect. Reflux of contrast into the intrahepatic IVC. Remaining chest: On soft tissue windows, bilateral gynecomastia more severe on the left. Normal thyroid. No axillary, supraclavicular, hilar, or mediastinal lymphadenopathy. Multichamber enlargement of the heart. Prominent pericardial recess along the posterior aspect of the right brachiocephalic vein and brachiocephalic confluence (series 7 image 91). Calcified pleural plaques noted bilaterally. No pericardial or pleural effusion. Upper abdomen normal. On lung windows, extensive dependent consolidation at the lung bases. Possible nodular opacity in the lingula (series 7 image 131). Scattered reticular and bandlike opacities. Evaluation of the lungs is highly degraded due to motion artifact. Minimal paraseptal emphysema at the lung apices. On bone windows, degenerative changes of the spine. IMPRESSION: 1. No evidence of acute aortic injury. 2. Enlarged main pulmonary artery suggest pulmonary hypertension. No central pulmonary embolus. 3. Calcified pleural plaques evidence of prior asbestos exposure. 4. Apparent nodular opacity in the lingula. Evaluation of the lungs is highly degraded due to motion artifact. Follow-up on a nonurgent outpatient basis recommended as this appears to represent a solid pulmonary nodule. 5. Extensive dependent atelectasis suspected. CHEST 2 VIEWS ROUTINE FINDINGS: Atherosclerosis of aortic arch. Cardiac silhouette enlarged. Prominence of the main pulmonary artery suspected. Mild pulmonary vascular prominence. Mildly low lung volumes with hypoventilatory changes. Scattered hazy and nodular opacities at the lung bases greater on the left. Trace bilateral pleural effusions suspected. No pneumothorax. Degenerative changes of the thoracic spine. Upper abdomen normal. IMPRESSION: 1. Cardiomegaly with volume overload. 2. Hazy left basilar opacity could represent developing edema, aspiration, or infection. 3. Trace bilateral pleural effusions. ECHOCARDIOGRAM * -- Conclusions -- * 1. Normal LV size, borderline concentric LVH. * 2. Mild LV dysfunction. LVEF 45-50%. * 3. Normal RV size and function. * 4. Mild mitral regurgitation. Mild pulmonic insufficiency. Mild tricuspid regurgitation. * 5. Aortic valve sclerosis without stenosis. * 6. Severe left atrial enlargement. * 7. No prior studies for comparison. Consultations: 1. Cardiology 2. PT/OT Medication Reconciliation New Medications: Furosemide (Lasix) 20 Mg Tab 20 MG PO DAILY PRN for Edema/Weight Gain for 30 Days, #30 TAB Metoprolol Succinate (Metoprolol Succinate ER) 25 Mg Tabcr 25 MG PO DAILY for 30 Days, #30 TABS Potassium Chloride (Klor-Con M20) 20 Meq Tabcr 1 TAB PO DAILY PRN for When you use Lasix for 30 Days, #30 TABS Saccharomyces Boulardii (Florastor) 250 Mg Cap 1 CAP PO DAILY for 7 Days, #7 CAP Levofloxacin (Levofloxacin) 750 Mg Tab 750 MG PO DAILY@11 for 4 Days, #4 TAB Start on 08/19. Rivaroxaban (Xarelto) 20 Mg Tab 20 MG PO DAILY for 30 Days, #30 TAB Continued Medications: Atorvastatin (Lipitor) 20 Mg Tab 20 MG PO DAILY, TAB Discontinued Medications: Prednisone Tab (Prednisone) 10 Mg Tab 2 MG PO DAILY, TAB Discharge Exam Review of Systems: Constitutional: No fever, No chills, No weakness, No fatigue ENT: No nasal symptoms Respiratory: No cough, No sputum, No wheezing, No dyspnea on exertion, No dyspnea at rest Cardiovascular: No chest pain, No orthopnea Abdomen: No pain, No nausea, No vomiting, No diarrhea, No constipation, No GI bleeding Musculoskeletal: + joint pain (L shoulder pain - improving) Genitourinary - Female: No dysuria Hematologic / Lymphatic: No abnormal bleeding/bruising Integumentary: No rash Physical Exam: General Appearance: WD/WN, no apparent distress Eyes: sclerae normal ENT: hearing grossly normal Neck: supple, trachea midline, + JVD (mild) Respiratory/Chest: no respiratory distress, no accessory muscle use, + crackles (bases b/l) Cardiovascular: no gallop, no murmur, + irregularly irregular Abdomen / GI: normal bowel sounds, non tender, soft Extremities: no pedal edema Neurologic/Psychiatric: alert, oriented x 3 Skin: normal color, warm/dry Hospital Course ADMISSION: 81 years old man with past medical history of dyslipidemia was in his regular state of health until 2 weeks ago. Patient developed upper respiratory tract infection with fever and shortness of breath about 6 ago and completely recovered from that sickness last week. Today he woke up with severe shortness of breath and bilateral chest pain. He describes the pain to be 10 out of 10 and gets worse with deep inspiration. He denies any cough or fever today. When he presented to the hospital he was found to have atrial fibrillation, new onset. Pain appears to be musculoskeletal/pleuritic in nature. He is unable to take deep breaths from the pain. He also said that he feels dehydrated with dry mucous membranes. His pain radiates to his shoulders and to his upper part of mid back. Denies any recent travel denies any pain in his lower extremities. No previous history of heart disease. Last week has some sciatic pain in his right lower extremity that was treated with prednisone oral. HOSPITAL COURSE: Mr. Randhawa was admitted for new onset atrial fibrillation and possible community acquired pneumonia. Patient remains in rate controlled atrial fibrillation and is asymptomatic at rest and ambulation. He was started on Toprol XL 25 mg daily and Xarelto 20 mg daily. Co-pay is $50 and patient in agreement to this and one month free coupon provided. His echocardiogram shows EF 45-50% and severe L atrial enlargement. He will follow with cardiology as outpatient. He did show some mild systolic CHF findings and will treat with Lasix 20 mg x 3 days and then just as needed for weight gain. Will continue Levaquin 750 mg daily to complete a 7 day course total for suspected CAP. Total Time Spent: Greater than 30 minutes This includes examination of the patient, discharge planning, medication reconciliation, and communication with other providers. Discharge Instructions Please refer to the electronic Patient Visit Report (Discharge Instructions) for additional information. Additional Copies To González Fountain M.D.
== END 2017-08-18 13:55 | disposition home or self-care (01) | DRG 193 ==
LOC: C.EDB 10:31 → C.2T 14:07 → CANRESERV 14:35 → ENRESERV 14:35
PROVIDERS: ADMIT Internal Medicine; ATTEND Internal Medicine
DX: J18.1 Lobar pneumonia, unspecified organism (principal); J96.01 Acute respiratory failure with hypoxia; I50.21 Acute systolic (congestive) heart failure; E87.1 Hypo-osmolality and hyponatremia; I48.91 Unspecified atrial fibrillation; E87.6 Hypokalemia; E78.5 Hyperlipidemia, unspecified; M54.41 Lumbago with sciatica, right side; E66.9 Obesity, unspecified; Z68.33 Body mass index [BMI] 33.0-33.9, adult; Z86.19 Personal history of other infectious and parasitic diseases; Z79.899 Other long term (current) drug therapy; Z88.0 Allergy status to penicillin

== ENCOUNTER → 2017-09-06 | Outpatient (CLI) | payer OTHER ==
[~2017-09-06] MED LIST changes: +ATOR-22 PO; +FURO-85 PO; +LVQ750 PO; +MCRK20 PO; +SACC250C3 PO; -TAMS0.4C38 PO; +TPRSR25 PO; +XRL20 PO
--- NOTE | 2017-09-06 15:35 | DIAGNOSTIC IMAGING REPORT ---
TWO VIEW CHEST CLINICAL HISTORY: Dyspnea.. FINDINGS: PA and lateral chest radiographs are compared to study dated 08/17/2017. The cardiomediastinal heart is enlarged. There is pulmonary vascular congestion. There are layering pleural effusions with bibasilar consolidation. There is no pneumothorax. The skeletal structures are osteopenic. Degenerative change is seen throughout the thoracic spine. IMPRESSION: 1. Cardiomegaly with evidence of mild congestive failure 2. Pleural effusions with bibasilar consolidation. This likely represents atelectasis. Clinical correlation will be required. Electronically signed by: Miguel Goldstein M.D. 09/06/2017 3:34 PM Dictated Date/Time: 09/06/2017 3:33 PM
== END | disposition home or self-care (01) ==
LOC: C.RADBC 15:18
PROVIDERS: ATTEND Physician Assistant Medical
DX: J90 Pleural effusion, not elsewhere classified (principal); I51.7 Cardiomegaly; R91.8 Other nonspecific abnormal finding of lung field

== ENCOUNTER → 2017-09-06 | Outpatient (CLI) | payer OTHER | END | disposition home or self-care (01) | LOC: C.MAMM 13:51 | PROVIDERS: ATTEND Internal Medicine Geriatric Medicine | DX: M85.851 Other specified disorders of bone density and structure, right thigh (principal); M85.852 Other specified disorders of bone density and structure, left thigh ==

== ENCOUNTER → 2017-09-09 | Outpatient (CLI) | payer OTHER ==
[2017-09-09 16:55] LABS: BASO % 0.3 %; BASO ABS # 0.02 K/uL (0-0.2); EOS % 8.3 %; EOS ABS # 0.62 K/uL (0-0.5); HEMATOCRIT 40.9 % (42-52); HEMOGLOBIN 13.7 g/dL (14.0-18.0); IG# 0.02 K/uL (0.00-0.02); LYMPH % 18.7 %; LYMPH ABS # 1.39 K/uL (1.2-3.4); MEAN CELL VOLUME 91.1 fL (80-100); MEAN CORPUSCULAR HEMOGLOBIN 30.5 pg (25-34); MEAN CORPUSCULAR HGB CONC 33.5 g/dl (32-36); MEAN PLATELET VOLUME 10.2 fL (7.4-10.4); MONO ABS # 0.82 K/uL (0.11-0.59); NEUT % 61.4 %; NEUT ABS # 4.58 K/uL (1.4-6.5); PLATELET COUNT 363 K/uL (130-400); RED CELL DISTRIBUTION WIDTH CV 12.4 % (11.5-14.5); RED CELL DISTRIBUTION WIDTH SD 41.6 fL (36.4-46.3); WHITE BLOOD COUNT 7.45 K/uL (4.8-10.8)
[2017-09-09 17:29] LABS: BLOOD UREA NITROGEN 12 mg/dl (7-18); CALCIUM 9.1 mg/dl (8.5-10.1); CARBON DIOXIDE 28 mmol/L (21-32); GLUCOSE 109 mg/dl (70-99); POTASSIUM 4.3 mmol/L (3.5-5.1); SODIUM 140 mmol/L (136-145)
== END | disposition home or self-care (01) ==
LOC: C.LABBC 13:55
PROVIDERS: ATTEND Physician Assistant Medical
DX: R06.00 Dyspnea, unspecified (principal)

== ENCOUNTER → 2017-10-17 | Outpatient (CLI) | payer OTHER ==
[~2017-10-17] MED LIST changes: -FURO-85 PO
--- NOTE | 2017-10-17 10:21 | DIAGNOSTIC IMAGING REPORT ---
(CHEST) THORAX WITHOUT CT DOSE: 538.92 mGycm HISTORY: Abnormal CT scan. Assess for lung nodules. TECHNIQUE: Multiaxial CT images of the chest were performed without contrast. A dose lowering technique was utilized adhering to the principles of ALARA. COMPARISON: Chest CTA 08/16/2017. FINDINGS: The visualized liver, spleen, and adrenal glands are unremarkable. There are trace pleural effusions and a trace pericardial effusion. The heart is borderline enlarged. Tiny hiatus hernia. No mediastinal or hilar lymphadenopathy. The main pulmonary artery remains distended at 3.5 cm. By basilar calcified pleural plaques remain unchanged. Left-sided gynecomastia. This remains unchanged. No suspicious lytic or blastic osseous lesions. No pneumothorax. The central airways are patent. Mild emphysema. Mild subpleural reticulation which is likely chronic. Confirmation of the 9 mm nodule within the lingula. IMPRESSION: 1. Confirmation of the 9 mm lingular nodule. A primary bronchogenic malignancy remains the diagnosis of exclusion. Please refer to the chart below for recommended follow-up. 2. Prior asbestos exposure and mild emphysema. 3. Trace pleural and pericardial effusions. 4. Pulmonary arterial hypertension. Please refer to below summary of Fleischner criteria recommendations for follow-up of incidental CT nodules (Brisa Pena, Guidelines for management of small pulmonary nodules detected on CT scans: A statement from the Fleischner Society, Radiology 237: [phone].) SOLID NODULES Solitary nodule size: <6 mm * Low risk patients: no follow-up needed * high risk patients: optional CT at 12 months Solitary nodule size: 6-8 mm * Low risk patients: follow-up at 6-12 months, then consider further follow-up at 18-24 months * high risk patients: initial follow-up CT at 6-12 months and then at 18-24 months if no change Solitary nodule size: >8 mm * either low or high risk patients - consider follow-up CT at 3 months, and/or CT-PET, and/or biopsy Multiple nodules size: <6 mm * Low risk patients: no routine follow-up * high risk patients: optional CT at 12 months Multiple nodules size: 6-8 mm * Low risk patients: follow-up at 3-6 months, then consider further follow-up at 18-24 months * high risk patients: follow-up at 3-6 months, then at 18-24 months if no change Multiple nodules size: >8 mm * Low risk patients: follow-up at 3-6 months, then consider further follow-up at 18-24 months * high risk patients: follow-up at 3-6 months, then at 18-24 months if no change Note: newly detected indeterminate nodule in persons 35 years of age or older. * Low risk patients: minimal or absent history of smoking and/or other known risk factors * high risk patients: history of smoking or of other known risk factors (e.g. first degree relative with lung cancer, or exposure to asbestos, radon, uranium) * if a nodule up to 8 mm is partly solid or is ground glass further follow-up is required after 24 months to exclude possible slow growing adenocarcinoma ([facility]) SUBSOLID NODULES Solitary pure ground-glass nodule * nodule size <6 mm - no CT follow-up required * nodule size >=6 mm - follow-up CT at 6-12 months, then every 2 years until 5 years Solitary part-solid nodule * nodule size <6 mm - no CT follow-up required * nodule size >=6 mm - follow-up CT at 3-6 months. If unchanged, and solid component remains <6 mm, then annual follow-up for 5 years Multiple subsolid nodules * nodule size <6 mm - follow-up CT at 3-6 months, consider further follow-up at 2 and 4 years if stable * nodule size >=6 mm - follow-up CT at 3-6 months, subsequent management based on the most suspicious nodule(s) Electronically signed by: Alfonso Castellanos M.D. 10/17/2017 10:20 AM Dictated Date/Time: 10/17/2017 10:11 AM
== END | disposition home or self-care (01) ==
LOC: C.CTS 09:51
PROVIDERS: ATTEND Internal Medicine Geriatric Medicine
DX: R91.1 Solitary pulmonary nodule (principal); R93.8 Abnormal findings on diagnostic imaging of other specified body structures; I27.21 Secondary pulmonary arterial hypertension

== ENCOUNTER → 2017-11-01 | Outpatient (CLI) | payer OTHER ==
[2017-11-01 16:55] LABS: BASO % 0.1 %; BASO ABS # 0.01 K/uL (0-0.2); EOS % 3.2 %; EOS ABS # 0.22 K/uL (0-0.5); HEMATOCRIT 43.2 % (42-52); HEMOGLOBIN 14.3 g/dL (14.0-18.0); IG# 0.02 K/uL (0.00-0.02); LYMPH % 21.6 %; LYMPH ABS # 1.51 K/uL (1.2-3.4); MEAN CELL VOLUME 88.3 fL (80-100); MEAN CORPUSCULAR HEMOGLOBIN 29.2 pg (25-34); MEAN CORPUSCULAR HGB CONC 33.1 g/dl (32-36); MONO % 11.2 %; MONO ABS # 0.78 K/uL (0.11-0.59); NEUT % 63.6 %; NEUT ABS # 4.44 K/uL (1.4-6.5); PLATELET COUNT 175 K/uL (130-400); RED CELL DISTRIBUTION WIDTH CV 15.6 % (11.5-14.5); RED CELL DISTRIBUTION WIDTH SD 50.1 fL (36.4-46.3); WHITE BLOOD COUNT 6.98 K/uL (4.8-10.8)
[2017-11-01 17:08] LABS: ALBUMIN 3.8 gm/dl (3.4-5.0); ALT/SGPT 29 U/L (12-78); AST/SGOT 22 U/L (15-37); BLOOD UREA NITROGEN 17 mg/dl (7-18); CALCIUM 8.9 mg/dl (8.5-10.1); CARBON DIOXIDE 29 mmol/L (21-32); GLUCOSE 117 mg/dl (70-99); POTASSIUM 4.3 mmol/L (3.5-5.1); SODIUM 139 mmol/L (136-145)
[2017-11-01 17:18] LABS: ALKALINE PHOSPHATASE 70 U/L (45-117); TOTAL PROTEIN 7.7 gm/dl (6.4-8.2)
== END | disposition home or self-care (01) ==
LOC: C.LABBC 14:29
PROVIDERS: ATTEND Internal Medicine Geriatric Medicine
DX: E78.5 Hyperlipidemia, unspecified (principal); M19.90 Unspecified osteoarthritis, unspecified site; D69.6 Thrombocytopenia, unspecified; Z68.37 Body mass index [BMI] 37.0-37.9, adult

== ENCOUNTER 2018-01-27 14:22 | Emergency (ER) | payer OTHER ==
[~2018-01-27] VITALS: Ht 167.6 cm; Wt 100.0 kg
[~2018-01-27 14:22] MED LIST changes: +LSX40 PO; -LVQ750 PO; +METO50TA8 PO; +MULTTAB58 PO; +OXGN; -SACC250C3 PO; -TPRSR25 PO; +[UNRECOGNIZED DRUG - OTHER] PO
[2018-01-27 14:39] VITALS: TEMP 36.6; Ht 167.6 cm; Wt 100.0 kg
[2018-01-27] MEDS ORDERED: SODIUM CHLORIDE 0.9% 1000ML 1,000 ML IV STA (16:01)
[2018-01-27] MEDS ORDERED: OPTIRAY 320 IV PRN (16:15)
[2018-01-27 17:32] LABS: BASO % 0.1 %; BASO ABS # 0.01 K/uL (0-0.2); HEMOGLOBIN 14.8 g/dL (14.0-18.0); IG# 0.02 K/uL (0.00-0.02); LYMPH % 12.9 %; LYMPH ABS # 1.32 K/uL (1.2-3.4); MEAN CELL VOLUME 91.7 fL (80-100); MEAN CORPUSCULAR HEMOGLOBIN 30.8 pg (25-34); MEAN CORPUSCULAR HGB CONC 33.6 g/dl (32-36); MEAN PLATELET VOLUME 11.1 fL (7.4-10.4); MONO % 11.1 %; MONO ABS # 1.14 K/uL (0.11-0.59); NEUT % 73.7 %; NEUT ABS # 7.54 K/uL (1.4-6.5); PLATELET COUNT 140 K/uL (130-400); RED CELL DISTRIBUTION WIDTH CV 13.8 % (11.5-14.5); RED CELL DISTRIBUTION WIDTH SD 45.6 fL (36.4-46.3); WHITE BLOOD COUNT 10.23 K/uL (4.8-10.8)
[2018-01-27 17:50] LABS: ALBUMIN 3.5 gm/dl (3.4-5.0); CALCIUM 8.9 mg/dl (8.5-10.1); POTASSIUM 4.8 mmol/L (3.5-5.1); TOTAL PROTEIN 7.4 gm/dl (6.4-8.2)
--- NOTE | 2018-01-27 18:39 | DIAGNOSTIC IMAGING REPORT ---
CT OF THE PELVIS WITH CONTRAST CLINICAL HISTORY: Pain. Evaluate for abscess. COMPARISON STUDY: No previous studies for comparison. TECHNIQUE: Axial images of the pelvis were obtained following intravenous injection of Optiray 320 IV. Sagittal and coronal reconstructions were viewed. FINDINGS: The appendix is normal. Caliber and wall thickness of visualized small and large bowel are normal. The bladder is mildly distended. Prostate is enlarged. There is no pelvic lymphadenopathy. Note is made of a 5.5 x 4.6 x 2.6 cm left perianal rim-enhancing fluid collection suggestive of an abscess. At most, there is minimal adjacent infiltration. No additional fluid collections are identified on this examination. No supralevator component is noted. No suspicious osseous lesion within the pelvis is noted. IMPRESSION: 5.5 x 4.6 x 2.6 cm rim-enhancing left perianal fluid collection suggestive of a perianal abscess. Electronically signed by: Darren Brown M.D. 01/27/2018 6:38 PM Dictated Date/Time: 01/27/2018 6:31 PM
[2018-01-27] MEDS ORDERED: LIDOCAINE 1% BUFFERED INJ 20 ML VIAL ONE (18:40)
[2018-01-27] MEDS ORDERED: LIDOCAINE/EPINEPHRINE 1% 20 ML VIAL ONE (18:42)
--- NOTE | 2018-01-27 18:48 | DIAGNOSTIC IMAGING REPORT ---
CHEST 2 VIEWS ROUTINE CLINICAL HISTORY: Left anal swelling/tenderness ?abscess. COMPARISON STUDY: Chest CT October 17, 2017. FINDINGS: Several calcified pleural plaques are noted. There is no pneumothorax or pleural effusion. No evidence for pulmonary edema. No consolidation is noted to suggest pneumonia. Moderate cardiomegaly is noted. The Millimeter lingular nodule shown on CT of October 17, 2017 is not well visualized on this exam, possibly due to technique. IMPRESSION: 1. No acute cardiopulmonary findings. 2. Moderate cardiomegaly. 3. 9 mm lingular nodule shown on CT of October 17, 2017 not visualized on this exam, likely due to technique. Electronically signed by: Darren Brown M.D. 01/27/2018 6:47 PM Dictated Date/Time: 01/27/2018 6:45 PM
[2018-01-27] MEDS ORDERED: METRONIDAZOLE 250 MG TAB PO STA (19:03)
[2018-01-27] MEDS ORDERED: CIPROFLOXACIN 500 MG TAB PO STA (19:03)
[2018-01-27 19:09] VITALS: BP 128/76; PULSE 75; O2SAT 95
[2018-01-27] MEDS ORDERED: METR-162 PO (19:09)
[2018-01-27] MEDS ORDERED: CIPR-255 PO (19:09)
--- NOTE | 2018-01-27 20:49 | EMERGENCY ROOM VISIT NOTE ---
History Report prepared by Johnny: Alma Lao Under the Supervision of: Dr. Shivam Pabon M.D. First contact with patient: 15:51 Chief Complaint: RECTAL PAIN Stated Complaint: THROMBOSED ENLARGED HEMORRHOID Nursing Triage Summary: Pt reports thrombosed hemmrrhoid on the left side. painful. Waiting for appointment at PCP, have not called yet. medical suppositories for the past week. pt c/o coughing up phleg, and slight fever last night History of Present Illness The patient is an 82 year old male who presents to the Emergency Room with complaints of constant rectal pain starting 2 weeks ago. The patient states that he has been struggling with health problems for the past few months. He states that it started with pneumonia in August and most recently had a bronchoscopy at the beginning of the month. He states that he just finished a 16 day dose of Prednisone. He states that he thinks that he was having a reaction to all the medications he has been on, so he has stopped taking some including his Xarelto. He notes that his PCP is aware of this. The patient states 2 weeks ago he developed a thrombosed internal hemorrhoid. He notes that he was given suppositories by his PCP, but neither that or a warm bath is helping alleviate his symptoms. He notes that sitting and movement makes the pain worse. The patient complains of a sore throat, loss of appetite, and shaky breathing. He notes that last night he had an episode of a coughing fit that produced phlegm. He states that he used his nebulizer and it seemed to help, but he has not used it today. The patient denies ever having hemorrhoids before and abdominal pain. The patient notes that he is unsure if he has a fever since his thermometer is broken. He notes that he has taken Aspirin and last took it yesterday. Source of History: patient Onset: 2 weeks ago Position: other (rectum) Quality: other (internal thrombosed hemorrhoid) Timing: constant Modifying Factors (Worsening): movement, other (sitting) Associated Symptoms: + sorethroat, No abdominal pain Note: The patient complains of a loss of appetite and shaky breathing. Review of Systems See HPI for pertinent positives and negatives. A total of ten systems were reviewed and were otherwise negative. Past Medical & Surgical Medical Problems: (1) History of pneumonia (2) New onset a-fib Surgical Problems: (1) S/P bronchoscopy Family History Diabetes mellitus FH: heart disease Social History Smoking Status: Former Smoker Drug Use: none Marital Status: Housing Status: lives alone Occupation Status: retired Current/Historical Medications Scheduled Atorvastatin (Lipitor), 20 MG PO DAILY Ciprofloxacin Hcl (Cipro), 500 MG PO BID Furosemide (Furosemide), 60 MG PO DAILY Home O2 Therapy (Oxygen), 2 LITERS NA PRN Metoprolol Succ (Toprol Xl) (Toprol-Xl), 50 MG PO DAILY Metronidazole (Flagyl), 500 MG PO TID Multiple Vitamin (Multivitamin), 1 TAB PO DAILY Rivaroxaban (Xarelto), 20 MG PO DAILY [viamin b complex], 1 TAB PO DAILY Scheduled PRN Potassium Chloride (Klor-Con M20), 1 TAB PO DAILY PRN for When you use Lasix Allergies Coded Allergies: Penicillins (Verified Allergy, Mild, UNKNOWN, 01/02/18) Physical Exam Vital Signs Date Time Temp Pulse Resp B/P (MAP) Pulse Ox O2 Delivery O2 Flow Rate FiO2 01/27/18 19:09 75 20 128/76 95 Room Air 01/27/18 17:01 67 01/27/18 16:35 61 18 127/85 93 Room Air 01/27/18 14:39 36.6 79 20 137/83 97 Room Air Physical Exam GENERAL: Awake, alert, well-appearing, in no distress HENT: Normocephalic, atraumatic. Oropharynx unremarkable. EYES: Normal conjunctiva. Sclera non-icteric. NECK: Supple. No nuchal rigidity. RESPIRATORY: Clear to auscultation. No wheezes. Normal respiratory effort. CARDIAC: Normal rate. Normal rhythm. Extremities warm and well perfused. GI: Soft, non-distended. No tenderness to palpation. No rebound or guarding. No masses. RECTAL: No scrotal or perineal tenderness. 3 x 5 cm area of erythema, tenderness , and mild fluctuance at the one o'clock thru 3 o'clock of the out aspect anus not involving the sphincter muscle. MUSCULOSKELETAL: Atraumatic. Chest examination reveals no tenderness. There is no CVA tenderness to palpation. LOWER EXTREMITIES: Calves are equal size bilaterally and non-tender. No edema NEURO: Normal sensorium. No sensory or motor deficits noted. SKIN: Warm and dry. No rash or jaundice noted. Medical Decision & Procedures ER Provider Diagnostic Interpretation: Radiology results as stated below per my review and radiologist interpretation: CHEST 2 VIEWS ROUTINE CLINICAL HISTORY: Left anal swelling/tenderness ?abscess. COMPARISON STUDY: Chest CT October 17, 2017. FINDINGS: Several calcified pleural plaques are noted. There is no pneumothorax or pleural effusion. No evidence for pulmonary edema. No consolidation is noted to suggest pneumonia. Moderate cardiomegaly is noted. The Millimeter lingular nodule shown on CT of October 17, 2017 is not well visualized on this exam, possibly due to technique. IMPRESSION: 1. No acute cardiopulmonary findings. 2. Moderate cardiomegaly. 3. 9 mm lingular nodule shown on CT of October 17, 2017 not visualized on this exam, likely due to technique. Electronically signed by: Darren Brown M.D. 01/27/2018 6:47 PM Dictated Date/Time: 01/27/2018 6:[address] OF THE PELVIS WITH CONTRAST CLINICAL HISTORY: Pain. Evaluate for abscess. COMPARISON STUDY: No previous studies for comparison. TECHNIQUE: Axial images of the pelvis were obtained following intravenous injection of Optiray 320 IV. Sagittal and coronal reconstructions were viewed. FINDINGS: The appendix is normal. Caliber and wall thickness of visualized small and large bowel are normal. The bladder is mildly distended. Prostate is enlarged. There is no pelvic lymphadenopathy. Note is made of a 5.5 x 4.6 x 2.6 cm left perianal rim-enhancing fluid collection suggestive of an abscess. At most, there is minimal adjacent infiltration. No additional fluid collections are identified on this examination. No supralevator component is noted. No suspicious osseous lesion within the pelvis is noted. IMPRESSION: 5.5 x 4.6 x 2.6 cm rim-enhancing left perianal fluid collection suggestive of a perianal abscess. Electronically signed by: Darren Brown M.D. 01/27/2018 6:38 PM Dictated Date/Time: 01/27/2018 6:31 PM Laboratory Results 01/27/18 17:10 Red Blood Count 4.80, Mean Corpuscular Volume 91.7, Mean Corpuscular Hemoglobin 30.8, Mean Corpuscular Hemoglobin Concent 33.6, Mean Platelet Volume 11.1, Neutrophils (%) (Auto) 73.7, Lymphocytes (%) (Auto) 12.9, Monocytes (%) (Auto) 11.1, Eosinophils (%) (Auto) 2.0, Basophils (%) (Auto) 0.1, Neutrophils # (Auto ) 7.54, Lymphocytes # (Auto) 1.32, Monocytes # (Auto) 1.14, Eosinophils # (Auto ) 0.20, Basophils # (Auto) 0.01 01/27/18 17:10 Test 01/27/18 17:10 White Blood Count 10.23 K/uL (4.8-10.8) Red Blood Count 4.80 M/uL (4.7-6.1) Hemoglobin 14.8 g/dL (14.0-18.0) Hematocrit 44.0 % (42-52) Mean Corpuscular Volume 91.7 fL (80-100) Mean Corpuscular Hemoglobin 30.8 pg (25-34) Mean Corpuscular Hemoglobin Concent 33.6 g/dl (32-36) Platelet Count 140 K/uL (130-400) Mean Platelet Volume 11.1 fL (7.4-10.4) Neutrophils (%) (Auto) 73.7 % Lymphocytes (%) (Auto) 12.9 % Monocytes (%) (Auto) 11.1 % Eosinophils (%) (Auto) 2.0 % Basophils (%) (Auto) 0.1 % Neutrophils # (Auto) 7.54 K/uL (1.4-6.5) Lymphocytes # (Auto) 1.32 K/uL (1.2-3.4) Monocytes # (Auto) 1.14 K/uL (0.11-0.59) Eosinophils # (Auto) 0.20 K/uL (0-0.5) Basophils # (Auto) 0.01 K/uL (0-0.2) RDW Standard Deviation 45.6 fL (36.4-46.3) RDW Coefficient of Variation 13.8 % (11.5-14.5) Immature Granulocyte % (Auto) 0.2 % Immature Granulocyte # (Auto) 0.02 K/uL (0.00-0.02) Anion Gap 7.0 mmol/L (3-11) Est Creatinine Clear Calc Drug Dose 64.1 ml/min Estimated GFR () 81.4 Estimated GFR (Non- 70.3 BUN/Creatinine Ratio 18.4 (10-20) Calcium Level 8.9 mg/dl (8.5-10.1) Total Bilirubin 1.0 mg/dl (0.2-1) Direct Bilirubin 0.2 mg/dl (0-0.2) Aspartate Amino Transf (AST/SGOT) 20 U/L (15-37) Alanine Aminotransferase (ALT/SGPT) 22 U/L (12-78) Alkaline Phosphatase 60 U/L (45-117) Total Protein 7.4 gm/dl (6.4-8.2) Albumin 3.5 gm/dl (3.4-5.0) Lipase 124 U/L (73-393) Laboratory results reviewed by me Medications Administered Medications (Trade) Dose Ordered Sig/Mony Route Start Time Stop Time Status Last Admin Dose Admin Sodium Chloride 1,000 ml @ 999 mls/hr Q1H1M STAT IV 01/27/18 16:01 01/27/18 17:01 DC 01/27/18 16:01 999 MLS/HR Ciprofloxacin (Cipro Tab) 500 mg NOW STAT PO 01/27/18 19:03 01/27/18 19:04 DC 01/27/18 19:08 500 MG Metronidazole (Flagyl Tab) 500 mg NOW STAT PO 01/27/18 19:03 01/27/18 19:04 DC 01/27/18 19:08 500 MG Procedure Incision & Drainage Indication: Abscess. Location: Left Perianal Abscess Verbal consent was obtained after the risks and benefits were explained, including but not limited to bleeding, scarring, infection, pain, and bone/joint /nerve damage. At this time, the risks of the procedure are less than the risks of NOT performing the procedure. A time out was taken and the correct patient and site identified. The skin was prepped with betadine and a sterile field set. The wound was anesthetized with 10 cc of 1% lidocaine with epinephrine. The abscess cavity was entered with a number 11 blade and bloody purulent material expressed. Copious irrigation was performed using normal saline. The wound was explored for foreign bodies and none found. Debridement was not performed. Placed sterile dressing applied. Detailed wound care instructions and signs and symptoms of worsening infection reviewed with the patient. No complications and the patient tolerated the procedure well. ECG Per My Interpretation Indication: SOB/dyspnea Rate (beats per minute): 71 Rhythm: atrial fibrillation Findings: other (no ST segement elevations, normal QRS interval) Comparison ECG Date: 08/16/2017 Change: no significant change ED Course 1552: The patient was evaluated in room C9. A complete history and physical exam was performed. 1601: Ordered NSS 1000 ml @ 999 mls/hr IV. 1835: I spoke to Dr. Brown from Radiology. The patient's CT showed a perianal abscess. 184: Ordered Lidocaine/Epinephrine 10 cc INJ. 184: I reevaluated the patient and performed an I&D at this time. Discussed results and discharge instructions: He verbalized understanding and agreement. The patient is ready for discharge. 190: Ordered Cipro Tab 500 mg PO. Medical Decision Differential diagnoses include bronchitis, pneumonia, chronic cough, hemorrhoidal pain, rectal abscess, perianal abscess, rectal pain. Patient presents with chronic cough with more phlegm production overnight. Questionably subjective fevers. Does not appear septic. Doubt this is cardiac. X-ray was completed here. Former nodule not visualized here. No pneumonia. Doubt this is cardiac related. Doubt PE. Believe the cough is a chronic problem. Primary complaint is rectal discomfort. On rectal suppositories this week but unable to get PCP for primary evaluation. Concern with worsening pain. No evidence of Mili's gangrene. Some erythema concerning for possible infection rather than hemorrhoid. CT the pelvis was completed to evaluate for possible infection or abscess. Currently off of anticoagulation. Blood work is grossly unremarkable with slight increase in neutrophil predominance. Not septic. CT with evidence of perianal abscess. I&D as above this area. No feculent material I do not believe there is a fistula here. Did not involve muscle. Improvement of pain after this. No complications. Encouraged him to discuss his medication use Xarelto use with his regular doctor given his afib. Advised follow-up with the next 3 days with his PCP for reevaluation of this abscess. Given the abscess that will place on Cipro and Flagyl. Discussed restrictions and alcohol use with this. Discussed return criteria. Feel he is stable for discharge. Medication Reconcilliation Current Medication List: was personally reviewed by me Blood Pressure Screening Patient's blood pressure: Normal blood pressure Blood pressure disposition: Did not require urgent referral Impression Primary Impression: Perianal abscess Additional Impression: Cough Scribe Attestation The scribe's documentation has been prepared under my direction and personally reviewed by me in its entirety. I confirm that the note above accurately reflects all work, treatment, procedures, and medical decision making performed by me. Departure Information Dispostion Home / Self-Care Prescriptions Metronidazole (FLAGYL) 500 Mg Tab 500 MG PO TID for 7 Days, #21 TAB Prov: Shivam Pabon M.D. 01/27/18 Ciprofloxacin Hcl (CIPRO) 500 Mg Tab 500 MG PO BID for 7 Days, #14 TAB 0 Refills Prov: Shivam Pabon M.D. 01/27/18 Referrals González Fountain M.D. (PCP) Forms HOME CARE DOCUMENTATION FORM, IMPORTANT VISIT INFORMATION, WORK / SCHOOL INSTRUCTIONS Patient Instructions My [facility] Additional Instructions Please utilize the ciprofloxacin and Flagyl prescribed to treat your abscess. Do not use alcohol with these medications. Please follow-up with your regular doctor on Tuesday or Tuesday for reevaluation of your abscess area. Please utilize warm baths at least twice a day to help keep this area clean. If worsening or any new concerns please return for reevaluation. Please discuss with the regular doctor your cough issues and your anticoagulation status. Problem Qualifiers
== END 2018-01-27 19:15 | disposition home or self-care (01) ==
LOC: C.EDB 14:24 → C.EDC 19:15
DX: K61.1 Rectal abscess (principal); K64.5 Perianal venous thrombosis; I48.91 Unspecified atrial fibrillation; R05 Cough

== ENCOUNTER → 2018-02-01 | Outpatient (CLI) | payer OTHER ==
[~2018-02-01] MED LIST changes: +CIPR-255 PO; +METR-162 PO
--- NOTE | 2018-02-01 13:27 | DIAGNOSTIC IMAGING REPORT ---
PET/CT CLINICAL HISTORY: Pulmonary nodule. COMPARISON STUDY: Chest CT dated 10/17/2017 and 08/16/2017. Pelvic CT dated 01/27/2018. TECHNIQUE: One hour following the IV administration of 13.46 mCi of F-18 FDG, PET/CT examination was performed from the orbital meatal line through the bony pelvis. Noncontrast CT is performed for the purposes of anatomic correlation and attenuation correction. Note that this does not reflect a diagnostic CT examination. Images were reviewed on a separate [employer] independent workstation. Fused images were obtained. Standard uptake values reported are maximum values within the region of interest expressed in gm/mL. FINDINGS: PET FINDINGS: Head and neck: There is expected physiologic activity within the visualized brain parenchyma at the skull base and the salivary glands. Thorax: Evaluation of the thorax demonstrates expected physiologic myocardial activity. There is a 10 mm left upper lobe pulmonary nodule seen on image #80. This was not demonstrably FDG avid. Gynecomastia is noted. There is low level FDG activity present within the left breast, asymmetric to the right. This demonstrates a maximum SUV of 1.7. Physiologic activity is seen in the right shoulder musculature. Abdomen and pelvis: There is expected activity within the liver, spleen, kidneys, renal collecting system, and bladder. Low-level bowel activity is likely within physical limits. There is intense perianal activity identified on image #241 with a maximum SUV of 8.8. There is an ovoid low-attenuation structure in the left perianal soft tissues at this site which measures 4.5 x [address] images: The partially imaged brain parenchyma the skull base is normal in appearance. Orbital contents are normal as visualized. There is a retention cyst in the right maxillary antrum. The remaining imaged paranasal sinuses and mastoid air cells are clear. The salivary and thyroid glands are normal as imaged. There is no cervical lymphadenopathy. The thoracic aorta is normal in caliber. The heart is enlarged and without pericardial effusion. The pulmonary trunk is dilated suggesting pulmonary artery hypertension. A tiny hiatal hernia is identified. There is no mediastinal, hilar, or axillary lymphadenopathy. A trace right pleural effusion is identified. Calcified pleural plaque is present at both lung bases. There is no airspace consolidation identified typical for pneumonia. The unenhanced liver, gallbladder, spleen, adrenal glands, and pancreas are grossly unremarkable. The kidneys demonstrate cortical atrophy and are without hydronephrosis. The abdominal aorta is normal in caliber noting mild to moderate atherosclerotic calcification. No bowel obstruction is identified. No intraperitoneal free air or abdominal ascites is seen. There is no abdominal, retroperitoneal, pelvic, or inguinal lymphadenopathy. The prostate gland is enlarged and heterogeneous, measuring 6.6 cm transverse diameter. The bladder is decompressed and grossly unremarkable. Surgical clips are noted along the spermatic cord. The skeletal structures are osteopenic. No lytic or blastic lesion is seen. Degenerative changes noted throughout the spine. IMPRESSION: 1. There is a 10 mm left upper lobe pulmonary nodule. This was not demonstrably FDG avid but may be too small for adequate PET characterization. At a minimum, continued CT follow-up is recommended. 2. There is an ovoid 4.5 x 2.3 cm low-attenuation perianal structure which is markedly FDG avid. A perianal abscess was seen on pelvic CT dated 01/27/2018 and this is likely related to infection/inflammation. Neoplasm is considered less likely. Clinical correlation will be essential. 3. There is gynecomastia. There is low level asymmetric activity in the left breast as compared to the right. This is of indeterminant significance. Correlation with mammography is recommended. 4. Cardiomegaly and trace right pleural effusion. 5. Additional findings as above. Electronically signed by: Miguel Goldstein M.D. 02/01/2018 1:25 PM Dictated Date/Time: 02/01/2018 1:10 PM
== END | disposition home or self-care (01) ==
LOC: C.PET 09:35
PROVIDERS: ATTEND Internal Medicine Pulmonary Disease
DX: R06.00 Dyspnea, unspecified (principal); R91.1 Solitary pulmonary nodule